=== PATIENT | female | born 1980 | race Caucasian/White ===

== ENCOUNTER 2018-10-09 09:48 | Inpatient (IN) | payer MEDICARE, MEDICAID ==
[~2018-10-09] VITALS: Ht 165.1 cm; Wt 170.4 kg
[2018-10-09] MEDS ORDERED: magnesium hydroxide 30ml (MOM) UD suspension PO PRN (11:20)
[2018-10-09] MEDS ORDERED: loperamide 2mg capsule PO PRN (11:20)
[2018-10-09] MEDS ORDERED: mag hydrox/Alum hydrox/simeth 30ml oral suspension PO PRN (11:20)
[2018-10-09] MEDS ORDERED: hydrOXYzine 25 MG tablet PO PRN (11:20)
[2018-10-09] MEDS ORDERED: tuberculin, purif. prot. deriv. 5 units/0.1ml ID ONE (11:20)
[2018-10-09] MEDS ORDERED: potassium PO (12:07)
[2018-10-09] MEDS ORDERED: BENZ1TAB7 PO (12:07)
[2018-10-09] MEDS ORDERED: HYDR12.5 PO (12:07)
[2018-10-09] MEDS ORDERED: MELO-100 PO (12:07)
[2018-10-09] MEDS ORDERED: HYDR-3686 PO (12:07)
[2018-10-09] MEDS ORDERED: BACL10TA PO (12:07)
[2018-10-09] MEDS ORDERED: ESOM40CA PO (12:07)
[2018-10-09] MEDS ORDERED: POTASSIUM PO (12:07)
[2018-10-09] MEDS ORDERED: HALO5TAB PO (12:07)
[2018-10-09 12:47] VITALS: BP 138/73
--- NOTE | 2018-10-09 13:26 | NUR ---
Admit note: Pt admitted to [facility] today at 1140 for grave disability. Pt admitted for psychosis. Pt admitted involuntarily on 5150. Pt is engaged in belief that her TV at her home was communicating with her and her couch was attempting to cause harm to her daughter. Pt also having difficulty sleeping due to fear that her life is in danger. Pt cooperative with admission process. Pt oriented to the unit. Pt advised of her involuntary hold. Staff has been unable to find pt clothing or scrubs that fit. Pt is wearing the scrubs from the previous facility with draw strings holding the clothing on her.
[2018-10-09] MEDS: hydrOXYzine 25 MG tablet PO SCH ×2 (13:46→20:38)
[2018-10-09] MEDS ORDERED: pantoprazole 40mg Tablet.DR PO SCH (17:00)
[2018-10-09 19:00] VITALS: BP 133/94
[2018-10-09] MEDS: baclofen 10mg tablet PO SCH (20:38)
[2018-10-09] MEDS: benztropine 1mg tablet PO SCH (20:38)
[2018-10-09] MEDS: haloperidol 5mg tablet PO SCH (20:38)
[2018-10-10] MEDS: LORazepam 1 MG tablet PO PRN ×2 (01:37→22:57)
[2018-10-10] MEDS: acetaminophen 325mg tablet PO PRN ×4 (01:37→23:07)
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
[2018-10-10] MEDS: benztropine 1mg tablet PO SCH ×2 (07:36→21:02)
[2018-10-10] MEDS: pantoprazole 40mg Tablet.DR PO SCH ×2 (07:37→18:07)
[2018-10-10] MEDS: haloperidol 5mg tablet PO SCH ×2 (07:38→21:03)
[2018-10-10] MEDS: HYDROchlorothiazide 12.5mg capsule PO SCH (07:38)
[2018-10-10] MEDS: potassium chloride 8mEq ER tablet PO SCH (07:39)
[2018-10-10] MEDS: hydrOXYzine 25 MG tablet PO SCH ×3 (07:39→21:02)
[2018-10-10] MEDS: baclofen 10mg tablet PO SCH ×2 (07:39→21:02)
[2018-10-10 08:00] VITALS: BP 148/81
[2018-10-10] MEDS ORDERED: MELOXICAM 7.5 MG PO SCH (08:00)
[2018-10-10 08:01] LABS: CHOL/HDL RATIO 3.8 (0.00-4.99); CHOLESTEROL 150 MG/DL (0-200); CREATINE KINASE 219 U/L (26-192); HDL CHOLESTEROL 39 MG/DL (35-60); LDL CHOLESTEROL 93 MG/DL (50-100); TRIGLYCERIDES 114 MG/DL (20-135)
[2018-10-10 08:08] LABS: HEMOGLOBIN A1C 5.7 % (4.5-6.2)
--- NOTE | 2018-10-10 16:19 | NUR ---
Nursing Progress Note: Legal hold: 5150 Client on involuntary status for GD/DTS. Report received from BELA Silverio with use of SBAR. Why are they here: Pt admitted on a 5150 for Psychosis. Pt is engaged in belief that her TV at her home was communicating with her and her couch was attempting to cause harm to her daughter. Pt also having difficulty sleeping due to fear that her life is in danger. Staff has been unable to find pt clothing or scrubs that fit. Pt is wearing the scrubs from the previous facility with draw strings holding the clothing on her. Assessment What has happened this shift: Patient required encouragement and prompting to complete ordered labs this morning. Patient c/o room being overly hot temperature lowered. Patient resistant in taking AM medications she insisted this nurse repeat education and description of each pill three times matching them back to the package then fitting them back in the package. Patient smelling her food at breakfast and reading labels. S/I, H/I: Denies A/VH: Denies Sleep: See sleep assessment ADL's: Independent Group attendance: No groups this shift Were Meds taken: Suggest leaving pills in their packages allowing the patient to read the label, feel the pill, see the pill then take it herself out of the package doing this one at a time. Any med S/E None noted Mental Status Exam Appearance: Unkempt Eye contact: Fair Behavior: Paranoid Speech: Talks in a hoarse whisper Mood: Anxious Affect: Labile Thought process: Paranoid Thought Content: She continues to think her father is hiding her children from her as well as manipulating her hospital stay Cognition: A/Ox3 Insight: Poor Judgment: Poor Interventions PRN's used: Therapeutic interventions: 1:1 assessment , medication administration/monitoring/education, encouragement to attend groups, therapeutic conversation & establishment of rapport, symptom identification and management, Q 15 min checks. Restraints/seclusion/emergency medication: None Justification of Continued Inpatient Treatment: Therapeutic support and medication management needed to provide stabilization, and prevent decompensation decreasing risk to patient for readmittance to in-patient unit.
[2018-10-10 19:00] VITALS: BP 173/96
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
[2018-10-11] MEDS: acetaminophen 325mg tablet PO PRN (05:38)
[2018-10-11] MEDS: potassium chloride 8mEq ER tablet PO SCH ×2 (07:35→12:51)
[2018-10-11] MEDS: HYDROchlorothiazide 12.5mg capsule PO SCH (07:36)
[2018-10-11] MEDS: baclofen 10mg tablet PO SCH ×2 (07:37→19:50)
[2018-10-11] MEDS: hydrOXYzine 25 MG tablet PO SCH ×3 (07:38→21:27)
[2018-10-11] MEDS: pantoprazole 40mg Tablet.DR PO SCH ×2 (07:39→17:51)
[2018-10-11] MEDS: LORazepam 1 MG tablet PO PRN ×2 (07:43→19:50)
[2018-10-11] MEDS: haloperidol 5mg tablet PO SCH ×2 (07:45→19:50)
[2018-10-11] MEDS: benztropine 1mg tablet PO SCH ×2 (07:49→19:50)
[2018-10-11 08:00] VITALS: BP 145/96
[2018-10-11 08:25] VITALS: BP 145/96
[2018-10-11] MEDS: furosemide 20MG tablet PO SCH (12:53)
--- NOTE | 2018-10-11 15:48 | NUR ---
Nursing Progress Note: Legal hold: 5150 Client on involuntary status for GD/DTS. Report received from BELA Silverio with use of SBAR. Why are they here: Pt admitted on a 5150 for Psychosis. Pt is engaged in a belief that her TV at her home was communicating with her and her couch was attempting to cause harm to her daughter. Pt also having difficulty sleeping due to fear that her life is in danger. Assessment What has happened this shift: Patient standing in her bedroom doorway peering wide eyed out into the hallway at start of shift. During am med pass pt insisted on holding each packaged pill, reading the label, opening the package herself then taking the pills one at a time. She refused K+, Haldol and benztropine until later in the morning once this nurse had educated, reeducated her multiple times along with encouraging her multiple times to take the medicine as prescribed. She ask this writher multiple times, "when can I go home." S/I, H/I: Denies A/VH: Denies Sleep: See sleep assessment ADL's: Independent Group attendance: Attended both groups Were Meds taken: Suggest leaving pills in their packages allowing the patient to read the label, feel the pill, see the pill then take it herself out of the package doing this one at a time. Any med S/E None noted Mental Status Exam Appearance: Showered last night. She continues to wear hospital gowns as she does not have any clothes from home with her. Eye contact: Fair Behavior: Paranoid Speech: Talks in a hoarse whisper Mood: Anxious Affect: Labile Thought process: Paranoid Thought Content: Wants to know when she can go home. Cognition: A/Ox3 Insight: Poor Judgment: Fair Interventions PRN's used: Ativan Therapeutic interventions: Provided therapeutic communication and active listening, medication administration/monitoring/education, encouragement to attend groups, symptom identification and management, Q 15 min checks. Restraints/seclusion/emergency medication: None Justification of Continued Inpatient Treatment: Therapeutic support and medication management needed to provide stabilization, and prevent decompensation decreasing risk to patient for readmittance to in-patient unit.
[2018-10-11 19:00] VITALS: BP 133/87
[2018-10-11] MEDS: HYDROcodone/acetaminophen 10/325mg tab PO PRN (19:50)
[2018-10-11 20:52] VITALS: BP 133/87
--- NOTE | 2018-10-11 21:04 | NUR ---
Nursing Progress Note: Legal hold: 5150 Client on involuntary status for GD/DTS. Report received from BELA Rodriguez with use of SBAR. Why are they here: Pt admitted on a 5150 for Psychosis. Pt is engaged in a belief that her TV at her home was communicating with her and her couch was attempting to cause harm to her daughter. Pt also having difficulty sleeping due to fear that her life is in danger. Assessment What has happened this shift: Patient in her room at change of shift, she is agitated and paranoid at this time. She refuses vital signs from the techs and is verbal aggressive. A 1:1 assessment is attempted at this time patient expresses "I hate females they are bitches, why do they keep laughing at me, I know they are dirty, I had 2 c-sections why are they trying to harvest my organs from that?" She feels that the female staff on the floor are making fun of her and expresses she thinks they are taking her organ, and states "I know it's probably because the dark skinned one is dating my Dad." then she states "How do I know I can trust you?" This senior copywriter states that I am here to help keep her safe and reiterate that her safety and well being is what is important. Patient is able to be calmed with reassurance, and verbal communication, and validating her feelings. She agrees at this time to have vital signs taken and to take her evening medications. At medication pass patient is tearful stating "I miss my kids, they are my everything." Patient continues to indorse paranoid delusions and signs of depression. She is cooperative for medication pass and then spends time in the recreation room watching television. S/I, H/I: Denies A/VH: Denies Sleep: See sleep assessment ADL's: Independent Group attendance: No groups this shift Were Meds taken: Yes Any med S/E None noted Mental Status Exam Appearance: Clean in hospital gown, patient has no clothes of her own on unit Eye contact: Fair Behavior: Paranoid Speech: Talks in a hoarse whisper Mood: Anxious Affect: Labile Thought process: Paranoid Thought Content: Wants to know when she can go home, thinking staff wants to harvest her organs, and that her Dad has control over hospital staff. Cognition: A/Ox3 Insight: Poor Judgment: Fair Interventions PRN's used: Ativan [place] Therapeutic interventions: Provided therapeutic communication and active listening, medication administration/monitoring/education, encouragement to attend groups, symptom identification and management, Q 15 min checks. Restraints/seclusion/emergency medication: None Justification of Continued Inpatient Treatment: Therapeutic support and medication management needed to provide stabilization, and prevent decompensation decreasing risk to patient for readmittance to in-patient unit.
[2018-10-12 08:00] VITALS: BP 180/76
[2018-10-12] MEDS: pantoprazole 40mg Tablet.DR PO SCH ×3 (09:58→17:05)
[2018-10-12] MEDS: haloperidol 5mg tablet PO SCH ×3 (09:58→20:39)
[2018-10-12] MEDS: HYDROchlorothiazide 12.5mg capsule PO SCH ×2 (09:58→10:35)
[2018-10-12] MEDS: potassium chloride 8mEq ER tablet PO SCH ×2 (09:59→10:35)
[2018-10-12] MEDS: baclofen 10mg tablet PO SCH ×3 (09:59→20:40)
[2018-10-12] MEDS: benztropine 1mg tablet PO SCH ×3 (09:59→20:39)
[2018-10-12] MEDS: hydrOXYzine 25 MG tablet PO SCH ×4 (09:59→17:07)
[2018-10-12] MEDS: furosemide 20MG tablet PO SCH ×2 (09:59→10:34)
[2018-10-12] MEDS: HYDROcodone/acetaminophen 10/325mg tab PO PRN ×2 (12:26→17:06)
[2018-10-12] MEDS: LORazepam 1 MG tablet PO PRN (13:47)
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
[2018-10-12 20:00] VITALS: BP 122/71
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
[2018-10-13] MEDS: HYDROcodone/acetaminophen 10/325mg tab PO PRN ×3 (04:50→18:18)
[2018-10-13] MEDS: potassium chloride 8mEq ER tablet PO SCH (07:30)
[2018-10-13] MEDS: benztropine 1mg tablet PO SCH ×2 (07:31→21:01)
[2018-10-13] MEDS: pantoprazole 40mg Tablet.DR PO SCH ×2 (07:31→17:00)
[2018-10-13] MEDS: haloperidol 5mg tablet PO SCH ×2 (07:31→21:01)
[2018-10-13] MEDS: HYDROchlorothiazide 12.5mg capsule PO SCH (07:31)
[2018-10-13] MEDS: baclofen 10mg tablet PO SCH ×2 (07:31→21:01)
[2018-10-13] MEDS: hydrOXYzine 25 MG tablet PO SCH ×3 (07:31→21:01)
[2018-10-13] MEDS: furosemide 20MG tablet PO SCH (07:32)
[2018-10-13 08:00] VITALS: BP 156/84
--- NOTE | 2018-10-13 15:34 | NUR ---
Nursing Progress Note: Legal hold: 5150 Client on involuntary status for GD/DTS. Report received from Claudia Pleitez RN with use of SBAR. Why are they here: Pt admitted on a 5150 for Psychosis. Pt is engaged in a belief that her TV at her home was communicating with her and her couch was attempting to cause harm to her daughter. Pt also having difficulty sleeping due to fear that her life is in danger. Assessment What has happened this shift: Patient is observed resting in her room at change of shift. She wakes when male tech is doing vital rounds and tells this RN that she feels uncomfortable having male staff take her vitals. When RN is prepared to take patients vitals patient states she had them taken by someone else. Prior to breakfast patient goes into the group room with others. She is observed laughing and conversating in a friendly and happy manner with a female resident. Morning medications are handed to patient and she goes through each one stating what they are. She states that she doesnt want to take the haldol or the atarax because she doesnt know what they are for. RN attempts to provided education, patient does not listen but she does take all of her medications. Patient asks charge nurse for pain medication r/t back pain. RN prepared medication and in route to room was asked by tech to check on patient for pain medication. RN administered pain med as prescribed at which time patient requested water and atarax for anxiety. When RN returned with new water insert patient stated she did not want it. She then asked tech to get her water. Patient was reminded that she refused water that was offered, patient stated she did not want the water from this RN and wanted someone else to get it for her. At scheduled time for Atarax patient refused med from this RN. She later requests more pain medication but it is too early to administer. Charge nurse explained to patient it was too early for pain medication. Patient agreed to take Atarax for anxiety. S/I, H/I: None reported A/VH: None reported Sleep: 3.5hrs NOC ADL's: Independent Group attendance: did not attend AM group, did attend afternoon Were Meds taken: Yes Any med S/E: none reported, no IMs or tremors observed Mental Status Exam Appearance: disheveled, wearing hospital gowns Eye contact: Direct Behavior: uncooperative, argumentive, defensive Speech: Clear Mood: agitated, anxious Affect: congruent to mood Thought process: goal directed regarding wants Thought Content: no delusional thought content expressed to this RN Cognition: A/Ox4 Insight: Poor Judgment: Fair Interventions PRN's used: Lori Therapeutic interventions: Provided therapeutic assessment, maintained safe therapeutic milieu, provided active listening with positive feedback, medication education as needed, monitored for change in behavior and needed intervention. Q 15 min checks. Restraints/seclusion/emergency medication: None Justification of Continued Inpatient Treatment: Continued therapeutic support and medication management needed to provide stabilization, prevent decompensation decreasing risk to patient for readmittance to in-patient unit. Addendum: 10/13/18 at 1654 by Nicolle Carrillo RN Legal hold: [id number]
--- NOTE | 2018-10-13 16:32 | NUR ---
Nurse note: Pt accusing her nurse of taking her medications. Attempting to explain to pt how many times she has received Wilder and pt interupts stating "My nurse stole my meds. She's lying. Call my dr in [place], your violating my rights. I used to pass meds. I know what Im talking about. Shut the door, your all shooting me with lasers and clicking your pens." Closed door for pt without attempting to explain any further instructions.
[2018-10-13 20:00] VITALS: BP 159/93
[2018-10-13] MEDS: ibuprofen tablet 400 MG TABLET PO PRN (21:00)
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
[2018-10-13] MEDS: LORazepam 1 MG tablet PO PRN (23:26)
[2018-10-14] MEDS: HYDROcodone/acetaminophen 10/325mg tab PO PRN ×3 (04:12→19:47)
[2018-10-14] MEDS: potassium chloride 8mEq ER tablet PO SCH (07:30)
[2018-10-14] MEDS: haloperidol 5mg tablet PO SCH ×2 (07:30→19:47)
[2018-10-14] MEDS: pantoprazole 40mg Tablet.DR PO SCH ×2 (07:30→17:26)
[2018-10-14] MEDS: baclofen 10mg tablet PO SCH ×2 (07:31→19:47)
[2018-10-14] MEDS: HYDROchlorothiazide 12.5mg capsule PO SCH (07:31)
[2018-10-14] MEDS: benztropine 1mg tablet PO SCH ×2 (07:31→19:47)
[2018-10-14] MEDS: furosemide 20MG tablet PO SCH (07:32)
[2018-10-14] MEDS: ibuprofen tablet 400 MG TABLET PO PRN ×2 (07:38→16:07)
[2018-10-14] MEDS: hydrOXYzine 25 MG tablet PO SCH ×3 (07:47→19:47)
[2018-10-14 08:04] VITALS: BP 143/74
--- NOTE | 2018-10-14 13:05 | NUR ---
Good appetite, eating 100% of meals, meeting nutrition needs at this time. Will continue to follow. Recommend: 1. continue regular diet 2. weekly weights Addendum: 10/14/18 at [address] Amended: Links added.
--- NOTE | 2018-10-14 17:30 | NUR ---
Nursing Progress Note: Legal hold: 5250 Client on involuntary status for GD/DTS. Report received from BELA Hurd with use of SBAR. Why are they here: Pt admitted on a 5150 for Psychosis. Pt is engaged in a belief that her TV at her home was communicating with her and her couch was attempting to cause harm to her daughter. Pt also having difficulty sleeping due to fear that her life is in danger. Assessment What has happened this shift: Pt. awake at start of shift. took medications and ate breakfast in community room. Pt. refused Atarax this AM because she did not want to be too tired. 1:1 assessment done in community room. Pt. reports she feels like she cannot go to the bathroom because people are talking outside her room. Pt. reports she feels her dad is after her and refuses to speak to him. Pt. had this RN reach out to her father to ask for clothes and update on children. Pt. becomes tearful when talking about her children. Pt. denies SI/HI, A/V H. Pt. requested Lafe this AM for back pain rated 8/10, but pt. recieved it at 0400. Pt. given Motrin instead with good effect. Pt. apologized to staff for her rude behavior yesterday. Pt. Recieved Lafe @12:30. Pt. went to groups. Pt. had court today in which she hoped to get discharged however 5250 was continued, pt. responded wth understanding and said, "I do like this place, and I feel I am much better". Pt. recieved Motrin @ 0400 with good effect. Staff found T-shirt for pt. to wear and pt. appears to be more comfortable now. S/I, H/I: Denies A/VH: Denies Sleep: 3.5 hours of sleep. ADL's: Independent Group attendance: Y Were Meds taken: Y Any med S/E: None noted, None reported Mental Status Exam Appearance: wearing T-shirt with Hospital gown tied around her waiste because there are no 4X pants in the hospital. Eye contact: Direct Behavior: Cooperative, Attended HS snack, Easily agitated Speech: Clear Mood: Depressed Affect: Labile Thought process: more clear and linear, with some distortions regarding her father. Thought Content: father conspiring against her, wanting to speak with her children. Cognition: A/Ox3 Insight: Fair Judgment: Fair Interventions PRN's used: Jon and Lori. Therapeutic interventions: Provided therapeutic communication and active listening, medication administration/monitoring/education, encouragement to attend groups, reality orientation, symptom identification and management, Q 15 min checks. Restraints/seclusion/emergency medication: None Justification of Continued Inpatient Treatment: Pt remains labile and delusional. Therapeutic support and medication management needed to provide stabilization, and prevent decompensation decreasing risk to patient for readmittance to in-patient unit.
[2018-10-14] MEDS: LORazepam 1 MG tablet PO PRN (19:25)
[2018-10-14 20:00] VITALS: BP 150/85
--- NOTE | 2018-10-14 20:30 | NUR ---
Pts father called back after pt hung up on him and requested to speak with her again. I advised against it at the time due to the level of agitation that the phone call had created. The father did inform me that he in fact did tell the patient to "stop flapping her nigger lips" because she would not listen when he was trying to share the status of her kids. I advised him that such language was not appropriate and clearly a trigger for the patient. Father apologized, and shared his frustration of taking care of the patient over the last 23 years and upset with some of the things the patient is saying about him, education done to help father better deal with pts behaviors, he was receptive. He advised me that the patients 9 year old daughter is in temp foster care and is the reason for the patients current breakdown. He states the 9 year old has significant behavior issues, including hoarding and severe acting out, the patient has been trying to manage the daughter but began struggling and stopped taking her meds. The 15 year old son is in another foster home and is doing well. Per father pt lost the kids in 2016 but he helped to get them back.
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
[2018-10-15] MEDS: HYDROcodone/acetaminophen 10/325mg tab PO PRN ×2 (04:43→12:53)
[2018-10-15 07:17] VITALS: BP 140/67
[2018-10-15] MEDS: potassium chloride 8mEq ER tablet PO SCH (07:56)
[2018-10-15] MEDS: furosemide 20MG tablet PO SCH (07:57)
[2018-10-15] MEDS: baclofen 10mg tablet PO SCH ×2 (07:57→20:57)
[2018-10-15] MEDS: benztropine 1mg tablet PO SCH ×2 (07:57→20:58)
[2018-10-15] MEDS: pantoprazole 40mg Tablet.DR PO SCH ×2 (07:57→17:50)
[2018-10-15] MEDS: HYDROchlorothiazide 12.5mg capsule PO SCH (07:58)
[2018-10-15] MEDS: hydrOXYzine 25 MG tablet PO SCH ×3 (08:00→20:58)
[2018-10-15] MEDS: haloperidol 5mg tablet PO SCH ×3 (09:00→20:58)
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
[2018-10-15 20:00] VITALS: BP 159/91
[2018-10-15] MEDS: ibuprofen tablet 400 MG TABLET PO PRN (20:57)
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
[2018-10-16] MEDS: HYDROcodone/acetaminophen 10/325mg tab PO PRN ×4 (00:56→23:58)
[2018-10-16] MEDS: ibuprofen tablet 400 MG TABLET PO PRN ×2 (04:23→12:18)
[2018-10-16] MEDS: acetaminophen 325mg tablet PO PRN ×2 (04:23→16:13)
[2018-10-16] MEDS: LORazepam 1 MG tablet PO PRN ×2 (04:23→16:13)
[2018-10-16] MEDS: benztropine 1mg tablet PO SCH ×2 (07:23→23:58)
[2018-10-16] MEDS: baclofen 10mg tablet PO SCH ×2 (07:23→23:59)
[2018-10-16] MEDS: potassium chloride 8mEq ER tablet PO SCH (07:23)
[2018-10-16] MEDS: pantoprazole 40mg Tablet.DR PO SCH ×2 (07:23→17:25)
[2018-10-16] MEDS: furosemide 20MG tablet PO SCH (07:23)
[2018-10-16] MEDS: HYDROchlorothiazide 12.5mg capsule PO SCH (07:23)
[2018-10-16] MEDS: hydrOXYzine 25 MG tablet PO SCH ×3 (07:23→23:59)
[2018-10-16 07:33] VITALS: BP 152/93
[2018-10-16] MEDS ORDERED: PALIPERIDONE 3 MG TAB.ER.24 PO SCH (08:00)
--- NOTE | 2018-10-16 14:52 | NUR ---
Nursing Progress Note: Nabila Miller Legal hold: 5250 Expires 10/26 Client on involuntary status for being gravely disabled Report received from BELA Hurd with use of SBAR. Why are they here: Pt admitted on a 5150 for Psychosis. Pt is engaged in a belief that her TV at her home was communicating with her and her couch was attempting to cause harm to her daughter. Pt also having difficulty sleeping due to fear that her life is in danger. Assessment What has happened this shift: Pt. is awake at change of shift engaging with staff and patients. She is observed to be smiling and joking with staff. Was compliant with VS and initial physical assessment. Pt stated she was waiting for her father to bring her some clothes. Father was contacted and will bring clothing when he can. During 1:1 pt is cooperative and compliant with all medications, however after opening and telling the patient each medication, she pointed to each one and asked what they were. Pt. Refuses to wear wrist band. She has been observed in her room interacting with someone, laughing, then yelling. During 15 checks, she demonstrates paranoia and delusions that everyone is talking about her, that everyone is a racist and that they are laughing about her not knowing anything about her children. Pt. denies A/V hallucinations, however is responding to internal stimuli. Offered Ativan patient refused stating "I dont want to take pills, thats the reason I lost my kids, I wont take pills. All I need is pot, pot fixes everything." Shortly after this outburst patient was asking for pain meds, lyrica, demerol, fentanyl. Pt. Requested to phone her dad again, provided with phone, did not want to use phone in hallway. Stayed with pt. During conversation. Spoke appropriately with her dad, stated "I just want to get along and do what is best for my kids." Previous to this she shared that her dad was a bad man and she was afraid of him. Also, during the conversation, she discussed how she does not trust her mom and that she is friends with all of her exs and is giving them information on how to find her. S/I, H/I: Denies A/VH: Denies but pt is laughing and talking to herself in her bedroom Sleep: Reported no sleep, refuses any medications that may cause drowsiness ADL's: Independent Group attendance: Afternoon group Were Meds taken: Y Any med S/E: None noted, None reported Mental Status Exam Appearance: Wearing T-shirts with hospital gown tied around her waist because there are not scrubs in pts size in the hospital. Pt. sweating, hair in ponytail. Provided pt. With 3X mens shorts as she is experiencing chaffing from thighs rubbing together. Eye contact: Direct Behavior: Pt. is easily agitated, calling staff names, needing multiple redirection, Pt. is social with other pts, pt spends time in her room talking/laughing/reading/writing to self. She told this consumer loan underwriter that she trusts her, but no one else. Appears to want to split staff. Speech: Clear Mood: Agitated, Anxious Affect: Labile. She will be laughing, with sudden change to yelling and increased agitation. Thought process: Disorganized, pt presents with paranoias and delusions regarding POC in the hospital, staff, father, and mother. Thought Content: Everyone is a racist, everyone is laughing at her. Any person who is talking, is talking about her. Cognition: A/Ox3 (not cognizant of events/purpose) Insight: Very poor Judgment: Very poor Interventions PRN's used: Lori Webb (X2) Therapeutic interventions: Provided therapeutic communication and active listening, medication administration/monitoring/education, encouragement to attend groups, reality orientation, symptom identification and management, Q 15 min checks. Restraints/seclusion/emergency medication: None Justification of Continued Inpatient Treatment: Pt remains labile, agitated, paranoid and delusional. Therapeutic support and medication management needed to provide stabilization, and prevent decompensation decreasing risk to patient for readmittance to in-patient unit. Addendum: 10/16/18 at 1626 by Alicia Alston RN Lyrica ordered for pain, first dose this evening. Pt. is more cooperative, however is still verbalizing seeing people outside her window smoking. C/O significant Chaffing to bilateral inner thighs r/t constant friction, attempted to find suitable clothing but nothing available that will fit.
[2018-10-16 19:00] VITALS: BP 150/81
--- NOTE | 2018-10-16 21:44 | NUR ---
Pt is sleeping soundly with no distress noted, will hold pt's 2100 meds until she wakes up. Pt has slept less than an 1 over the last 24 hours.
[2018-10-16] MEDS: pregabalin 75mg capsule PO SCH (23:59)
[2018-10-17] MEDS: ibuprofen tablet 400 MG TABLET PO PRN ×2 (02:09→11:46)
--- NOTE | 2018-10-17 03:28 | NUR ---
Nursing Progress Note: Legal hold: 5250 Exp 10/26 @ 1140 Client on involuntary status for being gravely disabled Report received from BELA Galicia with use of SBAR. Why are they here: Pt admitted on a 5150 for Psychosis. Pt is engaged in a belief that her TV at her home was communicating with her and her couch was attempting to cause harm to her daughter. Pt also having difficulty sleeping due to fear that her life is in danger. Assessment What has happened this shift: Pt. sitting in room at shift change, no acute distress noted. 1:1 assessment was completed at bedside. Pt was agitated, but cooperative. Pt later came up to this publicity writer and asked if she had any phone calls. Pt voiced her concern that some staff are not giving her her messages or are changing the people on her list that she wants to talk to. Reassured pt this was not happening. Pt observed in TV room laughing and talking to peers about how "he (not mentioning a name) is going to be pissed if he sees him." Pt was asleep in room when 2100 meds were being passed. Since pt had had little sleep in the last 24 hrs this publicity writer let pt sleep. Pt was administered her medications at 2330. Pt was pleasant when she awoke. She talked about how she missed her children and perseverated on how her father was turning them against her. Pt states her children are two different races and her dad is a racist and doesn't see them as that. Pt feels her father bad mouths her and says she is "crazy and paranoid." Pt has been awake since 2330. She was walking the halls. Pt refers to staff as "bitches" and states "they shouldn't treat me like shit, they just want my ", "I am going to tell my father and they will get fired." RN redirected conversation as pt was getting more agitated. At one point pt postured up on a female staff person, then flipped her off "she better stay away from my ." Pt states there was a camoflauge jacket in the TV earlier and states "my friend put it there to let me know he was okay" (pt refers to a friend who is in the [employer]). Pt is observed sitting in her room talking to herself and intermittently reading her Bible. Pt refuses Ativan "I don't want to sleep, I don't want to miss my morning medications." RN reassured pt she wouldn't miss medications - pt still declined. Pt has been in and out of her room, expained to patient she can't be up and down the halls talking loud and having her headphones turned on, othe pts' are sleeping. Pt response "let's let all the vampires out." S/I, H/I: Pt denies. None observed A/VH: Pt denies but pt is laughing and talking to herself in her bedroom Sleep: See sleep assessment notation. Pt resisting need to sleep ADL's: Independent Group attendance: filing writer, no group Were Meds taken: Medication compliant - refuses PRN Any med S/E: None noted, None reported Mental Status Exam Appearance: Wearing T-shirts with hospital gown tied around her waist because there are not scrubs in pts size in the hospital. Pt. sweating, hair in ponytail Eye contact: Direct Behavior: Pt. was cooperative at beginning of shift, then became very agitated and paranoid Speech: Clear, hyperverbal Mood: Agitated, paranoid, restless, anxious Affect: Labile Thought process: Disorganized, tangential, perseveration (female staff want her husband0 Thought Content: Delusional, father turning her kids against her. Father is a racist. Female staff "wants my " Cognition: A/Ox3 (not cognizant of events/purpose) Insight: Very poor Judgment: Very poor Interventions PRN's used: Jon Sandoval Therapeutic interventions: Provided therapeutic communication and active listening, medication administration/monitoring/education, encouragement to attend groups, reality orientation, symptom identification and management, Q 15 min checks. Restraints/seclusion/emergency medication: None Justification of Continued Inpatient Treatment: Pt remains labile, agitated, paranoid and delusional. Therapeutic support and medication management needed to provide stabilization, and prevent decompensation decreasing risk to patient for readmittance to in-patient unit. Addendum: 10/17/18 at 0503 by Uyen Alcantara RN Pt continued to escalate. Client was overheard saying "I will beat this staff up" "those slut, bitch, whores, they are trying to steal my !" Client continued to make loud verbal threats to staff and waking patients up. RN along with other staff attempted to redirect pt. Pt refused her PRN Ativan. CRN received verbal order from JOEY Alexandre for 2 mg po Ativan and 10 mg po Haldol. Security was notified to be present on the unit. Once security arrived on unit, this RN and CRN attempted verbal deescalation, then offered client oral PRN medications. Then offered pt a snack. Client continued to make bizarre statements "Is this going to slash me?" "Are you trying to kill me?" "What about the BTK?" "Are you in this with my dad?" Client requested headphones and is continuing to walk art. Will continue to monitor
[2018-10-17] MEDS ORDERED: haloperidol 5mg tablet PO ONE ×2 (04:25→19:00)
[2018-10-17] MEDS ORDERED: LORazepam 1 MG tablet PO ONE ×2 (04:25→19:10)
[2018-10-17] MEDS ORDERED: haloperidol lactate 5mg/ml inj IM ONE ×2 (04:30→19:00)
[2018-10-17] MEDS ORDERED: LORazepam 2 mg/ml vial IM ONE ×2 (04:30→19:00)
[2018-10-17] MEDS ORDERED: haloperidol lactate 5mg/ml inj ONE (04:32)
[2018-10-17] MEDS ORDERED: LORazepam 2 mg/ml vial ONE (04:33)
[2018-10-17 08:00] VITALS: BP 107/66
[2018-10-17] MEDS: PALIPERIDONE 3 MG TAB.ER.24 PO SCH ×2 (08:00→08:22)
[2018-10-17] MEDS: pregabalin 75mg capsule PO SCH ×3 (08:21→20:16)
[2018-10-17] MEDS: hydrOXYzine 25 MG tablet PO SCH ×3 (08:22→20:16)
[2018-10-17] MEDS: potassium chloride 8mEq ER tablet PO SCH (08:22)
[2018-10-17] MEDS: baclofen 10mg tablet PO SCH ×2 (08:22→20:16)
[2018-10-17] MEDS: pantoprazole 40mg Tablet.DR PO SCH ×2 (08:22→17:38)
[2018-10-17] MEDS: benztropine 1mg tablet PO SCH ×2 (08:23→20:16)
[2018-10-17] MEDS: furosemide 20MG tablet PO SCH (08:23)
[2018-10-17] MEDS: HYDROchlorothiazide 12.5mg capsule PO SCH (08:23)
[2018-10-17] MEDS: HYDROcodone/acetaminophen 10/325mg tab PO PRN ×2 (08:43→13:07)
--- NOTE | 2018-10-17 13:59 | NUR ---
Nursing Progress Note: Nabila Miller Legal hold: 5250 Expires 10/26 Client on involuntary status for being gravely disabled Report received from BELA Hurd with use of SBAR. Why are they here: Pt admitted on a 5150 for Psychosis. Pt is engaged in a belief that her TV at her home was communicating with her and her couch was attempting to cause harm to her daughter. Pt also having difficulty sleeping due to fear that her life is in danger. Assessment What has happened this shift: Patient is asleep at change of shift and up before breakfast. Patient is agitated and accusing staff of being racist because "my is black". Patient cussing angry at all the staff she has encountered today. Patient refused to take her Paliperidone this morning. Patient stated "I committed a crime! I called you a bitch. Can you please take me to the [facility]. RN explained to the patient that she was on a legal hold and we have no jurisdiction to arrest her. Patient stated in one of her rants that her is at [facility]. RN does not believe patient is or in a current relationship. Was compliant with VS and initial physical assessment. Patient Refuses to wear her wrist band. She has been observed in her room talking to herself. During 15 checks, she demonstrates paranoia and delusions that everyone is talking about her. Patient says "how would you feel if someone took your kids away." Pt. denies A/V hallucinations, however is responding to internal stimuli. S/I, H/I: Denies A/VH: Denies but patient is talking to herself in her room Sleep: Patient took several cat naps today. ADL's: Independent Group attendance: Afternoon group Were Meds taken: Yes, except refused paliperidone. Any med S/E: None noted, None reported Mental Status Exam Appearance: Wearing T-shirts with hospital gown tied around her waist because there are not scrubs in pts size in the hospital. Pt. sweating, hair in ponytail. Provided pt. With 3X mens shorts as she is experiencing chaffing from thighs rubbing together. Eye contact: Direct Behavior: Pt. is easily agitated, calling staff names, needing multiple redirection, Pt. is social with other pts, pt spends time in her room talking/laughing/reading/writing to self. Patient called this senior medical writer a racist bitch and spit out her ibuprofen on the floor at RN's feet when a tech walked by her room and patient stated he gave her a dirty look. Speech: Clear Mood: Agitated, Anxious Affect: Labile. She will be laughing, with sudden change to yelling and increased agitation. Thought process: Disorganized, pt presents with paranoias and delusions regarding POC in the hospital, staff, father, and mother. Thought Content: Everyone is a racist, everyone is laughing at her. Any person who is talking, is talking about her. Cognition: A/Ox3 (not cognizant of events/purpose) Insight: Very poor Judgment: Very poor Interventions PRN's used: Lori (X2) Therapeutic interventions: Provided therapeutic communication and active listening, medication administration/monitoring/education, encouragement to attend groups, reality orientation, symptom identification and management, Q 15 min checks. Restraints/seclusion/emergency medication: None Justification of Continued Inpatient Treatment: Pt remains labile, agitated, paranoid and delusional. Therapeutic support and medication management needed to provide stabilization, and prevent decompensation decreasing risk to patient for readmittance to in-patient unit. Addendum: 10/16/18 at 1626 by Alicia Alston RN Lyrica ordered for pain, first dose this evening. Pt. is more cooperative, however is still verbalizing seeing people outside her window smoking. C/O significant Chaffing to bilateral inner thighs r/t constant friction, attempted to find suitable clothing but nothing available that will fit.
[2018-10-17] MEDS ORDERED: paliperidone palmitate inj 234 MG/1.5 ML SYRINGE IM ONE (15:00)
[2018-10-17] MEDS ORDERED: LORazepam 2 mg/ml vial IV ONE (19:00)
[2018-10-17] MEDS ORDERED: diphenhydrAMINE 50 mg/ml inj IM ONE (19:00)
[2018-10-17] MEDS ORDERED: diphenhydrAMINE 25mg capsule PO ONE (19:00)
--- NOTE | 2018-10-17 19:00 | NUR ---
Pt refused vitals
--- NOTE | 2018-10-17 22:33 | NUR ---
Pt refused assessment Addendum: 10/17/18 at 2242 by Uyen Alcantara RN Amended: Links added.
--- NOTE | 2018-10-17 22:38 | NUR ---
Pt refused vitals and assessment Addendum: 10/17/18 at 2242 by Uyen Alcantara RN Amended: Links added.
--- NOTE | 2018-10-18 05:13 | NUR ---
Client behaviors: During COS the client was in the atr yelling accusations that included; theft of clothing and "sleeping with my ". The client was pointing angrily and shouting obscenities. Clients reacted by returning to their rooms. Two female clients reported to staff that they are afraid of this client and do not come out of their room when this client is on the unit. A male client stated, "I'm over her." Another male client attempted to exit the rec room but was too afraid to leave while client was present (this client backed against the window). Another male client became angry and went to his room. Attempts to verbally de-escalate client were unsuccessful. Client was escorted to her room by staff. JOEY Almanzar was notified at 19:15 and ordered the followin. Temporary LOS. 2. Set appropriate boundaries. 3. Give 2 mg Ativan Tab PO, 10 mg Haldol Tab PO, and 50 mg Benadryl Tab PO. If client refuses PO meds give via IM. Security was notified to standby on unit. This RN and Uyen Pedraza RN entered clients room and offered PO meds. Initially client was angry and accusatory, but relented and accepted PO meds. Jimi Martínez stayed with the client until she feel asleep.
--- NOTE | 2018-10-18 05:55 | NUR ---
Nursing Progress Note: Legal hold: 5250 Exp 10/26 @ 1140 Client on involuntary status for being gravely disabled Report received from BELA Galicia with use of SBAR. Why are they here: Pt admitted on a 5150 for Psychosis. Pt is engaged in a belief that her TV at her home was communicating with her and her couch was attempting to cause harm to her daughter. Pt also having difficulty sleeping due to fear that her life is in danger. Assessment What has happened this shift: During COS the client was in the art yelling accusations that included; theft of clothing and "sleeping with my ". The client was pointing angrily and shouting obscenities. Clients reacted by returning to their rooms. Two female clients reported to staff that they are afraid of this client and do not come out of their room when this client is on the unit. A male client stated, "I'm over her." Another male client attempted to exit the rec room but was too afraid to leave while client was present (this client backed against the window). Another male client became angry and went to his room. Attempts to verbally de-escalate client were unsuccessful. Client was escorted to her room by staff. JOEY Almanzar was notified at 19:15 and ordered the followin. Temporary LOS. 2. Set appropriate boundaries. 3. Give 2 mg Ativan Tab PO, 10 mg Haldol Tab PO, and 50 mg Benadryl Tab PO. If client refuses PO meds give via IM. Security was notified to standby on unit. This RN and MICHAEL Caceres entered clients room and offered PO meds. Initially client was angry and accusatory, but relented and accepted PO meds. Jimi Martínez stayed with the client until she feel asleep. Pt was monitored throughout the shift for medication side effects. S/I, H/I: Pt denies. None observed A/VH: Pt denies but pt is laughing and talking to herself in her bedroom Sleep: Currently sleeping - B-52 administered ADL's: Independent Group attendance: day camp unit leader, no group Were Meds taken: Medication compliant with routine meds. PO B-52 administered with effect Any med S/E: None noted, None reported Mental Status Exam Appearance: Wearing T-shirts with hospital gown tied around her waist because there are not scrubs in pts size in the hospital. Pt. sweating, hair in ponytail. Provided pt. With 3X mens shorts as she is experiencing chaffing from thighs rubbing together. Eye contact: Direct Behavior: Extremely paranoid, agitated, pt thinks one of her peers stole a pair of pants her dad left. Pt's. dad was never here today. Calling staff and peers bitches and whores. Speech: Clear, hyperverbal Mood: Agitated, paranoid, anxious Affect: Labile, pt will be laughing with sudden change to yelling and increased agitation Thought process: Disorganized, tangential, perseveration Thought Content: Someone stole her clothes, she needs her kids back, everyone is talking about her Cognition: A/Ox3 (not cognizant of events/purpose) Insight: Very poor Judgment: Very poor Interventions PRN's used: One time PRN - Ativan, Benadryl, Haldol Therapeutic interventions: Provided therapeutic communication and active listening, medication administration/monitoring/education, encouragement to attend groups, reality orientation, symptom identification and management, Q 15 min checks. Restraints/seclusion/emergency medication: None Justification of Continued Inpatient Treatment: Pt remains labile, agitated, paranoid and delusional. Therapeutic support and medication management needed to provide stabilization, and prevent decompensation decreasing risk to patient for readmittance to in-patient unit.
[2018-10-18 07:00] VITALS: BP 156/92
[2018-10-18] MEDS: pregabalin 75mg capsule PO SCH ×3 (07:34→20:23)
[2018-10-18] MEDS: hydrOXYzine 25 MG tablet PO SCH ×3 (07:34→20:22)
[2018-10-18] MEDS: PALIPERIDONE 3 MG TAB.ER.24 PO SCH (07:35)
[2018-10-18] MEDS: HYDROcodone/acetaminophen 10/325mg tab PO PRN ×4 (07:35→21:40)
[2018-10-18] MEDS: benztropine 1mg tablet PO SCH ×2 (07:35→20:23)
[2018-10-18] MEDS: HYDROchlorothiazide 12.5mg capsule PO SCH (07:35)
[2018-10-18] MEDS: LORazepam 1 MG tablet PO PRN ×2 (07:35→21:39)
[2018-10-18] MEDS: pantoprazole 40mg Tablet.DR PO SCH ×2 (07:35→17:35)
[2018-10-18] MEDS: furosemide 20MG tablet PO SCH (07:36)
[2018-10-18] MEDS: baclofen 10mg tablet PO SCH ×2 (07:36→20:23)
[2018-10-18] MEDS: potassium chloride 8mEq ER tablet PO SCH (07:36)
[2018-10-18] MEDS: ibuprofen tablet 400 MG TABLET PO PRN ×2 (11:29→20:23)
--- NOTE | 2018-10-18 13:43 | NUR ---
Nursing Progress Note: Legal hold: 5250 Exp 10/26 @ 1140 Client on involuntary status for being gravely disabled Report received from Claudia Pleitez RN with use of SBAR. Why are they here: Pt admitted on a 5150 for Psychosis. Pt is engaged in a belief that her TV at her home was communicating with her and her couch was attempting to cause harm to her daughter. Pt also having difficulty sleeping due to fear that her life is in danger. Assessment What has happened this shift: Patient awoke shortly after change of shift. Went into group room and started escalating, yelling, cussing, threatening behavior. Other clients in room either froze or went to their rooms. Patient unwilling to take medications in group room, but agreed to go back to her room and take them. On the way back in hallway, patient cussing. "I'm to a loom repairer". Once in patient's room, she questioned every medication, and started picking at medications asking what each one was. Showed her packaging for each medication. She didn't believe that I gave her [place], because it wasn't in a "gold package". Showed her clearly where it stated it was [place] 10-325. This process took over 30", and patient agreed to take all of them. Notified JOEY Lin of behaviors and requested prns, new orders: Ativan 2 mg p.o. q6h, prn, Geodon 20 mg p.o. b.i.d., prn, Benadryl 50 mg p.o. q6h prn for severe agitation. Team meeting to discuss plan of care which includes limit setting, show of force, if patient does not take p.o. B-52 for agitation, then I.M. meds, restraints if necessary. Patient refusing to take Haldol, so was changed to Geodon. Patient was escorted back to her room where she used headphones, looked at paperwork, made phone calls, and was observed talking to herself. Patient is paranoid that her information will be shared with others, that staff are talking about her. Called RN choice words. Patient requesting to go to [facility]. Kept telling nurse that she is going to call her father and apologize to him and tell him to come pick her up. Reminded patient that she is on an involuntary hold, "yeah, I'm in a hole all right", "on a leash". Patient did respond well to strong limit setting with consequences. Security called and they spent time in group room monitoring behaviors for increased escalation. Patient in rec room now watching t.v. and laughing out loud with another male client. Will continue to monitor patient behaviors and intervene as necessary to make other patient's feel safe in unit milieu. S/I, H/I: Pt. observed talking to herself. Denies all. A/VH: Pt denies but pt is laughing and talking to herself in her bedroom Sleep: 8.25 hrs at [facility]. ADL's: Independent Group attendance: Attempted, pt cannot maintain control in group. Were Meds taken: Yes with much coaxing/education. Patient states pain is 12/10 low back pain. Pt. was given [place] 10-325, routine Lyrica, Motrin, ice packs for pain. Any med S/E: None observed, None reported Mental Status Exam Appearance: Short, obese woman wearing two hospital gowns to cover self. Reportedly, patient's father is supposed to bring in some clothing. Eye contact: Direct Behavior: Yelling, cussing, scaring other patients. Accusatory Speech: Increased volume and rate. Mood: Labile. Affect: Labile, pt will be laughing with sudden change to yelling and increased agitation Thought process: Disorganized, tangential, perseveration Thought Content: Wants to know where her children are, when her next pain meds are due, Cognition: A/Ox3 (not cognizant of events/purpose) Insight: Impaired. Judgment: Impaired. Interventions PRN's used: Ativan 1 mg, [place], Motrin Therapeutic interventions: Strong limit setting, show of force, consequences of behavior. No tolerance rule on unit to keep other patients safe. Provided therapeutic communication and active listening, medication administration/monitoring/education, reality orientation, symptom identification and management, Q 15 min checks. Charge Nurse kept informed of patients behavior and needed interventions. Restraints/seclusion/emergency medication: None Justification of Continued Inpatient Treatment: Pt remains labile, agitated, paranoid and psychotic. Interruption of current crisis, therapeutic support and medication management needed to provide stabilization, and prevent decompensation decreasing risk to patient and other patients on unit.
[2018-10-18] MEDS ORDERED: HYDROchlorothiazide 12.5mg capsule PO ONE (19:30)
[2018-10-18 19:50] VITALS: BP 144/106
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
[2018-10-18] MEDS: acetaminophen 325mg tablet PO PRN (23:43)
[2018-10-18] MEDS: diphenhydrAMINE 25mg capsule PO PRN (23:44)
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
--- NOTE | 2018-10-19 04:45 | NUR ---
Pt became agitated and persecutory towards staff after her father dropped belongings off for her. She was walked to her room by staff members and was encouraged to try to rest. Pt accused staff members of being "disrespectful" and "mean" and said she was going to anabel them. Pt was calmed down by staff members, given medications, and soon fell asleep.
[2018-10-19] MEDS: benztropine 1mg tablet PO SCH ×2 (07:30→20:28)
[2018-10-19] MEDS: HYDROchlorothiazide 12.5mg capsule PO SCH (07:30)
[2018-10-19] MEDS: furosemide 20MG tablet PO SCH (07:30)
[2018-10-19] MEDS: potassium chloride 8mEq ER tablet PO SCH (07:30)
[2018-10-19] MEDS: hydrOXYzine 25 MG tablet PO SCH ×3 (07:30→20:28)
[2018-10-19] MEDS: pantoprazole 40mg Tablet.DR PO SCH ×2 (07:30→17:15)
[2018-10-19] MEDS: pregabalin 75mg capsule PO SCH ×3 (07:31→20:28)
[2018-10-19] MEDS: PALIPERIDONE 3 MG TAB.ER.24 PO SCH (07:31)
[2018-10-19] MEDS: baclofen 10mg tablet PO SCH ×2 (07:31→20:28)
[2018-10-19 08:00] VITALS: BP 119/74
[2018-10-19] MEDS: HYDROcodone/acetaminophen 10/325mg tab PO PRN ×3 (08:46→21:41)
[2018-10-19] MEDS: LORazepam 1 MG tablet PO PRN (12:40)
[2018-10-19] MEDS: acetaminophen 325mg tablet PO PRN (14:44)
[2018-10-19] MEDS: topiramate 25mg tablet PO SCH (17:15)
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
[2018-10-19] MEDS: ibuprofen tablet 400 MG TABLET PO PRN (19:19)
[2018-10-19 19:55] VITALS: BP 113/74
[2018-10-20] MEDS: diphenhydrAMINE 25mg capsule PO PRN (00:47)
[2018-10-20] MEDS: acetaminophen 325mg tablet PO PRN ×2 (00:47→11:55)
[2018-10-20] MEDS: ibuprofen tablet 400 MG TABLET PO PRN ×3 (02:54→19:27)
[2018-10-20] MEDS: LORazepam 1 MG tablet PO PRN ×2 (02:54→21:16)
[2018-10-20] MEDS: ziprasidone 20mg capsule PO PRN ×2 (05:16→21:17)
[2018-10-20] MEDS: HYDROcodone/acetaminophen 10/325mg tab PO PRN ×3 (05:21→21:09)
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
[2018-10-20] MEDS: furosemide 20MG tablet PO SCH (07:48)
[2018-10-20] MEDS: potassium chloride 8mEq ER tablet PO SCH (07:48)
[2018-10-20] MEDS: pregabalin 75mg capsule PO SCH ×3 (07:48→21:07)
[2018-10-20] MEDS: pantoprazole 40mg Tablet.DR PO SCH ×2 (07:49→17:00)
[2018-10-20] MEDS: HYDROchlorothiazide 12.5mg capsule PO SCH (07:51)
[2018-10-20] MEDS: topiramate 25mg tablet PO SCH ×4 (07:51→17:01)
[2018-10-20] MEDS: hydrOXYzine 25 MG tablet PO SCH ×3 (07:52→21:07)
[2018-10-20] MEDS: baclofen 10mg tablet PO SCH ×2 (07:52→20:00)
[2018-10-20] MEDS: PALIPERIDONE 3 MG TAB.ER.24 PO SCH (07:54)
[2018-10-20] MEDS: benztropine 1mg tablet PO SCH ×2 (07:54→20:00)
[2018-10-20 08:00] VITALS: BP 140/86
--- NOTE | 2018-10-20 12:06 | NUR ---
1:1 COLLATERAL/DISCHARGE PLANNING SW received message from CPS T[employer], Rosemary Aiken at [phone], regarding pt's children in the foster care system. She reports pt is scheduled to attend a long term hearing on 10/23/2018 and requested return contact. SW checked ZACH to learn if pt had allowed for information to be shared and learned it had not been signed for CPS. SW requested pt to provide signature to allow communication and pt declined. SW provided pt w/ CPS worker telephone number and court hearing date. JERILYN ValenzuelaW
--- NOTE | 2018-10-20 17:29 | NUR ---
Nursing Progress Note: Legal hold: 5250 Exp 10/26 @ 1140 Client on involuntary status for being gravely disabled Report received from BELA Mason with use of SBAR. Why are they here: Pt admitted on a 5150 for Psychosis. Pt is engaged in a belief that her TV at her home was communicating with her and her couch was attempting to cause harm to her daughter. Pt also having difficulty sleeping due to fear that her life is in danger. Assessment What has happened this shift: Pt was awake at change of shift and did not sleep at all last night. Patient had a cussing breakdown at change of shift but was advised to go to her room and patient calmed down. She is fixated on female members of the staff talking about her. She was labile and easily agitated. Lower back pain treated with Tylenol, Motrin and [place]. Pt took very short cat nap this afternoon. Patient didn't remember her 0520 [place] and was upset with the nurse that a [place] wasn't included in the 0800 medications. Patient accused one of the female staff taking her [place] this morning. When RN gave her a [place] close to 1400 patient didn't believe it was a real [place] and wants us to give her her medication that is stored in the pharmacy. When RN gave patient her 1700 meds patient wanted to know why we didn't give patient her Lyrica in the afternoon. RN and patient walked together and RN showed patient on the computer the 2 times she received her Lyrica today. Patient is labile and easily agitated. Patient states she is doing fine and doesn't need medication. Patient refused her afternoon Topamax. S/I, H/I: Denies A/VH: Denies Sleep: Very short cat nap in the afternoon. ADL's: Independent Group attendance: No Were Meds taken: Yes, refused 1 dose of afternoon Topamax Any med S/E: None observed, None reported Mental Status Exam Appearance: Long shirt with leggings but took off the leggings after lunch. Eye contact: Direct Behavior: Agitated, labile, Speech: pressured Mood: Labile. Affect: Labile Thought process: Disorganized thoughts, paranoia Thought Content: Wants pain medications Cognition: A/Ox3 (not cognizant of events/purpose) Insight: Poor Judgment: Poor Interventions PRN's used: Ativan, [place], Tylenol, Motrin Therapeutic interventions: Limit setting, No tolerance rule on unit to keep other patients safe. Provided therapeutic communication and active listening, medication administration/monitoring/education, reality orientation, symptom identification and management, Q 15 min checks. Charge Nurse kept informed of patients behavior and needed interventions. Restraints/seclusion/emergency medication: None Justification of Continued Inpatient Treatment: Pt remains labile, agitated, paranoid and psychotic. Interruption of current crisis, therapeutic support and medication management needed to provide stabilization, and prevent decompensation decreasing risk to patient and other patients on unit.
[2018-10-20 20:28] VITALS: BP 118/73
[2018-10-20] MEDS ORDERED: quetiapine 100mg tablet PO ONE (22:50)
--- NOTE | 2018-10-21 02:53 | NUR ---
Legal hold: 5250 Exp 10/26 @ 1140 Client on involuntary status for being gravely disabled Report received from BELA Howard with use of SBAR. Why are they here: Pt admitted on a 5150 for Psychosis. Pt is engaged in a belief that her TV at her home was communicating with her and her couch was attempting to cause harm to her daughter. Pt also having difficulty sleeping due to fear that her life is in danger. Assessment What has happened this shift: Pt had periods of agitation and verbally abusive towards peers during snack. Pt conversation are tangental and contain references to her father Pt paced the halls on and off the phone. Pt is impatient when asking for something and was calling a RN by dog names to get her attention. Pt was compliant with medications and Prn's. Pt stated that she has had difficulty sleeping and the provider gave a one time order for Seroquil 100mg for sleep @ 23:00 and was asleep at 23:30. S/I, H/I: Denies A/VH: Denies Sleep: pt currently sleeping ADL's: Independent Group attendance: N/A Were Meds taken: Yes Any med S/E: None observed, None reported Mental Status Exam Appearance: Took a shower dressed appropriately in street clothes. Eye contact: Direct Behavior: Agitated, labile Speech: pressured Mood: Labile. Affect: Labile Thought process: Disorganized thoughts, paranoia Thought Content: Wants pain medications Cognition: A/Ox3 (not cognizant of events/purpose) Insight: Poor Judgment: Poor Interventions PRN's used: Ativan, Atarax, [place], Therapeutic interventions: Limit setting, No tolerance rule on unit to keep other patients safe. Provided therapeutic communication and active listening, medication administration/monitoring/education, reality orientation, symptom identification and management, Q 15 min checks. Charge Nurse kept informed of patients behavior and needed interventions. Restraints/seclusion/emergency medication: None Justification of Continued Inpatient Treatment: Pt remains labile, agitated, paranoid and psychotic. Interruption of current crisis, therapeutic support and medication management needed to provide stabilization, and prevent decompensation decreasing risk to patient and other patients on unit.
[2018-10-21] MEDS: PALIPERIDONE 3 MG TAB.ER.24 PO SCH (07:30)
[2018-10-21] MEDS: pregabalin 75mg capsule PO SCH ×3 (07:30→20:12)
[2018-10-21] MEDS: pantoprazole 40mg Tablet.DR PO SCH ×2 (07:30→18:05)
[2018-10-21] MEDS: baclofen 10mg tablet PO SCH ×2 (07:31→20:13)
[2018-10-21] MEDS: potassium chloride 8mEq ER tablet PO SCH (07:31)
[2018-10-21] MEDS: topiramate 25mg tablet PO SCH ×3 (07:31→18:05)
[2018-10-21] MEDS: HYDROcodone/acetaminophen 10/325mg tab PO PRN ×3 (07:32→20:19)
[2018-10-21] MEDS: HYDROchlorothiazide 12.5mg capsule PO SCH (07:33)
[2018-10-21] MEDS: furosemide 20MG tablet PO SCH (07:33)
[2018-10-21] MEDS: hydrOXYzine 25 MG tablet PO SCH ×3 (07:33→20:14)
[2018-10-21] MEDS: benztropine 1mg tablet PO SCH ×2 (07:33→20:12)
[2018-10-21 07:41] VITALS: BP 138/88
--- NOTE | 2018-10-21 11:12 | NUR ---
Reassessment: Pt continues with 75-100% PO intake on regular diet meeting nutrient needs. Patient's wt is up 5 kg since admit, likely r/t good PO intake as well as fluid retention documented with edema. [facility] 10/20. Will continue to follow. Recommend: 1. continue regular diet 2. weekly weights Addendum: 10/21/18 at [address] Amended: Links added.
[2018-10-21] MEDS: ibuprofen tablet 400 MG TABLET PO PRN ×2 (12:38→22:32)
[2018-10-21] MEDS: ziprasidone 20mg capsule PO PRN (13:47)
--- NOTE | 2018-10-21 17:35 | NUR ---
Nursing Progress Note: Legal hold: 5250 Exp 10/26 @ 1140 Client on involuntary status for being gravely disabled Report received from BELA Hurd with use of SBAR Why are they here: Pt admitted on a 5150 for Psychosis. Pt is engaged in a belief that her TV at her home was communicating with her and her couch was attempting to cause harm to her daughter. Pt also having difficulty sleeping due to fear that her life is in danger. Assessment What has happened this shift: Pt. in a pleasant mood this AM, took medications after examining each, ate breakfast. Pt. making delusional comments about how numbers represent her father. 1:1 done at bedside, pt. talks at length of how her father is after her and trying to take her kids away. Pt. talks about how her father her mother to pursue multiple women and how she felt abandoned by her father and her mother. Pt. reports her biological mother is a drug addict. Pt. reports her father hates her for having children with men of different races. Pt. became agitated after requesting to have phone numbers from her phone and was told that she could not look at facebook. Pt. keeps her door closed because she feels like people are constantly looking at her. Pt. states, "people taking my medications, selling my identity, wtiches, and wejessica suazo, working with my father to keep me here and sell my kids to [employer] men for $100,000. Pt. perseverates on her children. S/I, H/I: Denies A/VH: Denies Sleep: 5.5 hours of sleep. ADL's: Independent. pt. showered. Group attendance: Pt. attended morning group but not evening group. Were Meds taken: Yes Any med S/E: None observed, None reported Mental Status Exam Appearance: clean and neat. Eye contact: Direct Behavior: Pleasent and cooperative in the morning, but became agitated, labile, and paranoid in the afternoon. Speech: pressured Mood: Labile. Affect: Labile Thought process: Disorganized thoughts, paranoia Thought Content: Focused on her children. Cognition: A/Ox3 (not cognizant of events/purpose) Insight: Poor Judgment: Poor Interventions PRN's used: Lori Sargent Motrin Therapeutic interventions: Limit setting, No tolerance rule on unit to keep other patients safe. Provided therapeutic communication and active listening, medication administration/monitoring/education, reality orientation, symptom identification and management, Q 15 min checks. Charge Nurse kept informed of patients behavior and needed interventions. Restraints/seclusion/emergency medication: None Justification of Continued Inpatient Treatment: Pt remains labile, agitated, paranoid and psychotic. Interruption of current crisis, therapeutic support and medication management needed to provide stabilization, and prevent decompensation decreasing risk to patient and other patients on unit.
[2018-10-21] MEDS ORDERED: quetiapine 100mg tablet PO PRN (19:20)
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
[2018-10-22] MEDS: acetaminophen 325mg tablet PO PRN (00:20)
[2018-10-22] MEDS: LORazepam 1 MG tablet PO PRN ×2 (00:20→11:18)
--- NOTE | 2018-10-22 03:38 | NUR ---
Nursing Progress Note: Legal hold: 5250 Exp 10/26 @ 1140 Client on involuntary status for being gravely disabled Report received from BELA Hurd with use of SBAR Why are they here: Pt admitted on a 5150 for Psychosis. Pt is engaged in a belief that her TV at her home was communicating with her and her couch was attempting to cause harm to her daughter. Pt also having difficulty sleeping due to fear that her life is in danger. Assessment What has happened this shift: Pt exhibited a little more control of behavior. Became agitated and angry at another pt in group room but did not escalate into aggressive speech or behavior. Pt is still delusional (See prior note by Charge nurse) S/I, H/I: Denies A/VH: Denies Sleep: No sleep. ADL's: Independent. pt. showered. Group attendance: Pt. attended morning group but not evening group. Were Meds taken: Yes Any med S/E: None observed, None reported Mental Status Exam Appearance: clean and neat. Eye contact: Direct Behavior:Cooperative most of the time Speech: pressured Mood: Labile. Affect: Labile Thought process: Disorganized thoughts, paranoia Thought Content: Focused on her Dad Cognition: A/Ox3 (not cognizant of events/purpose) Insight: Poor Judgment: Poor Interventions PRN's used: Jon Sandoval Therapeutic interventions: Limit setting, No tolerance rule on unit to keep other patients safe. Provided therapeutic communication and active listening, medication administration/monitoring/education, reality orientation, symptom identification and management, Q 15 min checks. Restraints/seclusion/emergency medication: None Justification of Continued Inpatient Treatment: Pt remains labile, agitated, paranoid and psychotic. Interruption of current crisis, therapeutic support and medication management needed to provide stabilization, and prevent decompensation decreasing risk to patient and other patients on unit.
[2018-10-22] MEDS: topiramate 25mg tablet PO SCH ×3 (07:55→17:51)
[2018-10-22] MEDS: pantoprazole 40mg Tablet.DR PO SCH ×2 (07:56→17:51)
[2018-10-22] MEDS: baclofen 10mg tablet PO SCH ×2 (07:56→21:05)
[2018-10-22] MEDS: pregabalin 75mg capsule PO SCH ×3 (07:56→21:04)
[2018-10-22] MEDS: hydrOXYzine 25 MG tablet PO SCH ×3 (07:57→21:05)
[2018-10-22] MEDS: benztropine 1mg tablet PO SCH ×2 (07:57→21:06)
[2018-10-22] MEDS: HYDROchlorothiazide 12.5mg capsule PO SCH (07:57)
[2018-10-22] MEDS: PALIPERIDONE 3 MG TAB.ER.24 PO SCH (07:58)
[2018-10-22] MEDS: potassium chloride 8mEq ER tablet PO SCH (07:58)
[2018-10-22] MEDS: furosemide 20MG tablet PO SCH (07:58)
[2018-10-22 08:00] VITALS: BP 132/80
[2018-10-22] MEDS: HYDROcodone/acetaminophen 10/325mg tab PO PRN ×3 (08:08→21:08)
[2018-10-22] MEDS: ibuprofen tablet 400 MG TABLET PO PRN ×2 (09:57→22:28)
[2018-10-22] MEDS: ziprasidone 20mg capsule PO PRN ×2 (11:17→18:11)
[2018-10-22] MEDS ORDERED: BRIVARACETAM PO ONE (16:20)
--- NOTE | 2018-10-22 17:50 | NUR ---
Nursing Progress Note: Legal hold: 5250 Exp 10/26 @ 1140 Client on involuntary status for being gravely disabled Report received from BELA Hurd with use of SBAR Why are they here: Pt admitted on a 5150 for Psychosis. Pt is engaged in a belief that her TV at her home was communicating with her and her couch was attempting to cause harm to her daughter. Pt also having difficulty sleeping due to fear that her life is in danger. Assessment What has happened this shift: Pt. was awake at start of shift. Pt. took medications and ate meals in community room. Pt. became increasingly agitated by mid morning, becoming focused on community health nurse, calling her names and threatening to beat her up. Pt. given PRN Geodon and Ativan with good effect. Pt. provokes peers with delusional thoughts, stating, "my is a famous rapper and you all want to have sex with him". Pt. continues to have ideas of reference regarding her people. e.g. when this RN gave her Geodon prn, pt. went on about a person named "don". Pt. assocaites numbers to her dad and children. Pt. napped in afternoon. ZACH for pt.'s insurance defense attorney Xena Chávez signed by pt. today, insurance defense attorney to call tomorrow to discuss pt.'s child custody issues, call group social worker to sit with pt. during phone call. Pt. needs assistance paying bills. S/I, H/I: Denies A/VH: Denies Sleep: 2.5 hours ADL's: Independent. Group attendance: Pt. did not attend groups today Were Meds taken: Yes Any med S/E: None observed, None reported Mental Status Exam Appearance: clean and neat. Eye contact: Direct Behavior: pt. is labile, pranoid, and intrusive. Pt. is redirectable. Speech: hyper verbal Mood: Labile, agitated and depressed becoming playful and making jokes. Affect: congruent with mood Thought process: Disorganized thoughts, paranoia, ideas of reference. Thought Content: Focused on her Dad and children Cognition: A/Ox3 (not cognizant of events/purpose) Insight: Poor Judgment: Poor Interventions PRN's used: [place], Motrin, Geodon, Ativan Therapeutic interventions: Limit setting, No tolerance rule on unit to keep other patients safe. Provided therapeutic communication and active listening, medication administration/monitoring/education, reality orientation, symptom identification and management, Q 15 min checks. Restraints/seclusion/emergency medication: None Justification of Continued Inpatient Treatment: Pt remains labile, agitated, paranoid and psychotic. Interruption of current crisis, therapeutic support and medication management needed to provide stabilization, and prevent decompensation decreasing risk to patient and other patients on unit.
[2018-10-22 20:08] VITALS: BP 128/68
--- NOTE | 2018-10-22 22:41 | NUR ---
Nursing Progress Note: Legal hold:5150 Client on involuntary status for GD. Report received from BELA Guzmán with use of SBAR Why are they here: 70 year old male with hx of schizophrenia presents to the ED on a 5150 mental health hold. 5150 was written by a clinician due to the patient being unable to care for himself. Due to the 5150 report that [facility] and attempted to go to his sisters house. It was proved that the patient is unable to proved food, intermediate, or clothing for himself and is having grandiose delusions that he is a "director institution going through time travel." Patient has no intentions for suicide or homicide. Per Natasha Urban's note, DEPARTMENT OF SOCIOLOGY CHAIR, the patient is conserved by the state and she is working and finding placement for him. Assessment What has happened this shift: Pt was up in the art and group room with head phones on. She became irritable asking if Im in the white supremacist wing because I like all races. Pt paranoid about her medictions stating there from [place]. She made referances about her dad is the reason she is here and he is lying about her to take her money. Pt is refusing PRN for sleep stating my Dad wants me two take them so he can beat me. Pt was prompted several times to take her HS meds and was compliant . S/I, H/I:denies A/VH:denies Sleep: sleeping at this time. ADL's:Independent. Pt. encouraged to shower Group attendance: Came to group room for snack Were meds taken: Yes Any med S/E None reported/none observed Mental Status Exam Appearance:Disheveled. Eye contact: good Behavior: Calm, cooperative, pacing. Speech:clear Mood: euthmyc Affect:Flat Thought process: Delayed Thought Content: Scattered Cognition: Oriented x3. pt. confused at how he was admitted. Insight:poor Judgment:poor Interventions PRN's used: none Therapeutic interventions: 1:1 therapeutic listening Restraints/seclusion/emergency medication: none Justification of Continued Inpatient Treatment:Pt is gravely disabled unable to verbalize a plan for food,clothing and intermediate. Interrupting current crisis.
[2018-10-23] MEDS ORDERED: zolpidem 5mg tablet PO ONE (01:20)
--- NOTE | 2018-10-23 01:38 | NUR ---
Pt. asleep for approximately 30 minutes at HS, awakened with paranoid delusion and unable to go back to sleep. Up wearing headphones and talking loudly in the hallway. Pt. refuses to take PRN Seroquel per report that it makes her "groggy," which contributes to her paranoid thinking. New order obtained for Ambien 10mg, pt. reports it has worked for her in the past, medication administered and will continue to monitor.
[2018-10-23 08:00] VITALS: BP 136/83
[2018-10-23] MEDS: topiramate 25mg tablet PO SCH ×3 (08:22→16:30)
[2018-10-23] MEDS: hydrOXYzine 25 MG tablet PO SCH ×3 (08:22→21:06)
[2018-10-23] MEDS: pregabalin 75mg capsule PO SCH ×3 (08:22→21:06)
[2018-10-23] MEDS: HYDROchlorothiazide 12.5mg capsule PO SCH (08:23)
[2018-10-23] MEDS: potassium chloride 8mEq ER tablet PO SCH (08:23)
[2018-10-23] MEDS: pantoprazole 40mg Tablet.DR PO SCH ×2 (08:23→16:30)
[2018-10-23] MEDS: PALIPERIDONE 3 MG TAB.ER.24 PO SCH (08:23)
[2018-10-23] MEDS: benztropine 1mg tablet PO SCH ×2 (08:24→21:07)
[2018-10-23] MEDS: baclofen 10mg tablet PO SCH ×2 (08:24→21:06)
[2018-10-23] MEDS: furosemide 20MG tablet PO SCH (08:24)
[2018-10-23] MEDS: HYDROcodone/acetaminophen 10/325mg tab PO PRN ×2 (08:55→16:12)
[2018-10-23] MEDS: LORazepam 1 MG tablet PO PRN (14:42)
--- NOTE | 2018-10-23 14:59 | NUR ---
Nursing Progress Note: Nabila Garcia Legal hold:5250 Expires 10/26/18 @ 1140 Client on involuntary status for GD. Report received from BELA Hurd with use of SBAR Why are they here: Pt admitted on a 5150 for Psychosis. Pt is engaged in a belief that her TV at her home was communicating with her and her couch was attempting to cause harm to her daughter. Pt also having difficulty sleeping due to fear that her life is in danger. Assessment What has happened this shift: Pt. Sleeping at shift change, requested PCT avoid waking patient as she has not slept well since admission. According to report client was awake until 0230 when she agreed to take ambien. She then slept until approximately 0830. Upon awakening, client is cooperative and appropriate. Ambulated to community room for breakfast, meds taken without difficulty. Remembered this technical proposal writer from previous week. During 1:1 assessment client talking about her dad finally going to [facility]. When inquiring why, client responded "because he illegally tried to put my children up for adoption". Client also spoke about having a third child."they told me I had an , but I know they just took the baby and put it up for adoption." Later, client approached me in observation room speaking about multiple topics none of which followed another. "The roof is where they wash the cruise liners." "my ex was on the roof over there with my saying I wanted him back, he needs to fall into the [place]." Client requested this technical proposal writer speak with her alone in her room regarding something very important. Client stated she gave her dad the password to her post office box, she wanted us to be aware that he may bring mail to her and that he could not open it because it is a federal offense. Continues to demonstrate paranoid delusions, manic behavior, and psychosis. Weekly weight obtained, client stated "I cant be gaining weight I have been walking all over; to [place], and [place]ul...... " During 15 safety check, client was startled, escalating her paranoia and delusions. Provided 1:1 active listening, therapeutic communication, offered Ativan which patient agreed to take. Continues to have paranoid delusions as described above. S/I, H/I: Denies A/VH: Denies Sleep: 6 hours ADL's: Independent. Group attendance: yes Were Meds taken: Yes Any med S/E: None observed, None reported Mental Status Exam Appearance: clean and neat. Eye contact: Direct Behavior: labile, paranoid, irritable. Pt. is redirectable. Speech: hyper verbal, jumping from topic to topic Mood: Labile, agitated and depressed becoming playful and making jokes. Affect: congruent with mood Thought process: Disorganized thoughts, paranoia, ideas of reference. Thought Content: Focused on her Dad and children Cognition: A/Ox3 (not cognizant of events/purpose) Insight: Poor Judgment: Poor Interventions PRN's used: [place], Ativan Therapeutic interventions: Limit setting, No tolerance rule on unit to keep other patients safe. Provided therapeutic communication and active listening, medication administration/monitoring/education, reality orientation, symptom identification and management, Q 15 min checks. Restraints/seclusion/emergency medication: None Justification of Continued Inpatient Treatment: Pt remains labile, agitated, paranoid and psychotic. Interruption of current crisis, therapeutic support and medication management needed to provide stabilization, and prevent decompensation decreasing risk to patient and other patients on unit.
[2018-10-23] MEDS ORDERED: paliperidone palmitate inj 234 MG/1.5 ML SYRINGE IM ONE (15:40)
[2018-10-23] MEDS ORDERED: quetiapine 100mg tablet PO PRN (15:45)
[2018-10-23] MEDS: ibuprofen tablet 400 MG TABLET PO PRN (18:12)
[2018-10-23 20:00] VITALS: BP 139/74
[2018-10-23] MEDS: zolpidem 5mg tablet PO SCH (21:06)
--- NOTE | 2018-10-24 00:06 | NUR ---
Nursing Progress Note: Legal hold: 5250 Expires 10/26/18 @ 1140 Client on involuntary status for GD. Report received from MICHAEL Rodriguez with use of SBAR Why are they here: Pt admitted on a 5150 for Psychosis. Pt is engaged in a belief that her TV at her home was communicating with her and her couch was attempting to cause harm to her daughter. Pt also having difficulty sleeping due to fear that her life is in danger. Assessment What has happened this shift: At shift change pt was in her room holding a piece of paper up to her window and looking out as if she were looking for someone. Pt asked if she could take a shower, PCT stated he would get it ready for her. Pt appeared agitated stating he had been denied a visit and "she didn't know why." Pt states her is a [facility] Deputy. "The bitches are trying to drive me crazy." This job specification writer reassured pt that there was no visitor and no one was denied. Pt continued and became teary-eyed stating it had been 14 days since she had seen her children and her "father is probably turning them against her." Pt appeared to be less agitated after her shower, attended HS snack in group room. 1:1 completed at bedside. Pt was cooperative and compliant. Pt gets in a tangent at times calling her self "fat" or "everyone always wants to feed the fat girl." This job specification writer asked why she speaks negatively about herself, pt quieted down, but did not respond. Pt was medication compliant. Took her Ambien with no adverse side effects noted. S/I, H/I: None reported or observed A/VH: None reported or observed Sleep: Currently sleeping with no distress noted ADL's: Independent. Group attendance: scene shifter, no group Were Meds taken: Medication compliant Any med S/E: None observed, None reported Mental Status Exam Appearance: Freshly showered, had hair pinned up, in purple dress Eye contact: Direct Behavior: labile, paranoid, irritable. Pt. is redirectable. Speech: Hyper verbal Mood: Labile, agitated and depressed becoming playful and making jokes. Affect: Constricted with some brightening Thought process: Disorganized thoughts, paranoia Thought Content: Focused on her father and children- pt "misses her children" Cognition: Intact Insight: Poor Judgment: Poor Interventions PRN's used: None Therapeutic interventions: Limit setting, No tolerance rule on unit to keep other patients safe. Provided therapeutic communication and active listening, medication administration/monitoring/education, reality orientation, symptom identification and management, Q 15 min checks. Restraints/seclusion/emergency medication: None Justification of Continued Inpatient Treatment: Pt remains labile, agitated, paranoid and psychotic. Interruption of current crisis, therapeutic support and medication management needed to provide stabilization, and prevent decompensation decreasing risk to patient and other patients on unit. Addendum: 10/24/18 at 0454 by Uyen Alcantara RN Pt woke up requesting her PRN Lori for back pain 12/27. Pt is making delusional statements that her is driving from [place] to come and see her. She states he will be there and points outside towards the parking lot. "That fat bitch is crossing the street" "I hate fat bitches." No one is outside in the parking lot. Addendum: 10/24/18 at 0547 by Uyen Alcantara RN Pt came to this job specification writer and reported she had vomited up Alpha. I was able to see 1/2 pill in the garbage. Called down to the pharmacy to see about getting another Alpha. Pt states that she was nauseous because on her pill bottle it indicated she was paranoid. While waiting for pt to take pill, pt said she wanted to look at the container her Alpha came in. On the bottle it indicated for severe paranoia. Pt began ranting about her father "having control of things."
[2018-10-24] MEDS: HYDROcodone/acetaminophen 10/325mg tab PO PRN ×3 (05:15→21:27)
[2018-10-24] MEDS: pregabalin 75mg capsule PO SCH ×3 (07:35→20:41)
[2018-10-24] MEDS: baclofen 10mg tablet PO SCH ×2 (07:35→20:41)
[2018-10-24] MEDS: benztropine 1mg tablet PO SCH ×2 (07:35→20:41)
[2018-10-24] MEDS: HYDROchlorothiazide 12.5mg capsule PO SCH (07:36)
[2018-10-24] MEDS: pantoprazole 40mg Tablet.DR PO SCH ×2 (07:36→18:08)
[2018-10-24] MEDS: topiramate 25mg tablet PO SCH ×3 (07:37→18:08)
[2018-10-24] MEDS: hydrOXYzine 25 MG tablet PO SCH ×3 (07:37→20:41)
[2018-10-24] MEDS: ibuprofen tablet 400 MG TABLET PO PRN (07:37)
[2018-10-24] MEDS: potassium chloride 8mEq ER tablet PO SCH (07:37)
[2018-10-24] MEDS: PALIPERIDONE 3 MG TAB.ER.24 PO SCH ×2 (07:37→08:00)
[2018-10-24 08:12] VITALS: BP 123/80
[2018-10-24] MEDS: furosemide 20MG tablet PO SCH (08:26)
[2018-10-24] MEDS ORDERED: ziprasidone IM 20mg inj **IM only ONE (14:41)
[2018-10-24] MEDS ORDERED: LORazepam 2 mg/ml vial ONE (14:41)
[2018-10-24] MEDS ORDERED: LORazepam 2 mg/ml vial IV ONE (14:41)
[2018-10-24] MEDS ORDERED: ziprasidone IM 20mg inj **IM only IM ONE (14:41)
[2018-10-24] MEDS: diphenhydrAMINE 25mg capsule PO PRN (15:55)
--- NOTE | 2018-10-24 17:05 | NUR ---
Nursing Progress Note: Legal hold: 5250 Exp 10/26 @ 1140 Client on involuntary status for being gravely disabled Report received from Manisha RN with use of SBAR Why are they here: Pt admitted on a 5150 for Psychosis. Pt is engaged in a belief that her TV at her home was communicating with her and her couch was attempting to cause harm to her daughter. Pt also having difficulty sleeping due to fear that her life is in danger. Assessment What has happened this shift: Received Pt awake in her room w/o ristress after change of shift. Pt hyperverbal with loose associations and using a lot of humor with play on words. Pt. took all AM medications except oral invega, even after much explanation, prompting and answering of questions.She ate meals in community room and attended AM group and was disruptive during both and had to be asked to leave the group. Pt continued to escalate and provoke other clients. Was offered oral prn for anxiety but refused and agreed to IM Geodon and Ativan. Pt calmed a bit, rested in her room and went to outside patio in afternoon. Pt ruminates on how her father has done many horrible things to her and has orchestrated her children being taken away. She wants info on her children, but will not sign releases of info to CPS and others in order to do so. Pt remains self absorbed with little regard for needs and feelings of others. Received Motrin prn this AM for back pain and used ice packs intermittently throughout day. S/I, H/I: Denies A/VH: Denies Sleep: 2.5 hours ADL's: Independent. Group attendance: Pt. did not attend groups today Were Meds taken: Yes Any med S/E: None observed, None reported Mental Status Exam Appearance: clean and neat. Eye contact: Direct Behavior: pt. is labile, pranoid, and intrusive. Pt. is redirectable. Speech: hyper verbal Mood: Labile, agitated and depressed becoming playful and making jokes. Affect: congruent with mood Thought process: Disorganized thoughts, paranoia, ideas of reference. Thought Content: Focused on her Dad and children Cognition: A/Ox3 (not cognizant of events/purpose) Insight: Poor Judgment: Poor Interventions PRN's used: Motrin, Geodon, Ativan Therapeutic interventions: Limit setting, No tolerance rule on unit to keep other patients safe. Provided therapeutic communication and active listening, medication administration/monitoring/education, reality orientation, symptom identification and management, Q 15 min checks. Restraints/seclusion/emergency medication: None Justification of Continued Inpatient Treatment: Pt remains labile, agitated, paranoid and psychotic. Interruption of current crisis, therapeutic support and medication management needed to provide stabilization, and prevent decompensation decreasing risk to patient and other patients on unit.
[2018-10-24 19:37] VITALS: BP 120/45
[2018-10-24] MEDS: zolpidem 5mg tablet PO SCH (20:40)
--- NOTE | 2018-10-24 21:49 | NUR ---
Pt states no BM this today, pt refused MOM. Pt states it is "white and everything white tastes like shit" Addendum: 10/24/18 at 2209 by Uyen Alcantara RN Amended: Links added.
--- NOTE | 2018-10-24 21:51 | NUR ---
Pt states the rash between her legs are healed. Pt states she healed it with her hands. Addendum: 10/24/18 at 2209 by Uyen Alcantara RN Amended: Links added.
--- NOTE | 2018-10-25 00:18 | NUR ---
Nursing Progress Note: Legal hold: 5250 Expires 10/26/18 @ 1140 Client on involuntary status for GD. Report received from MICHAEL Rodriguez with use of SBAR Why are they here: Pt admitted on a 5150 for Psychosis. Pt is engaged in a belief that her TV at her home was communicating with her and her couch was attempting to cause harm to her daughter. Pt also having difficulty sleeping due to fear that her life is in danger. Assessment What has happened this shift: At shift change pt was walking between group room and rec room talking to herself, pt appeared to be a little agitated looking at her furrowed brows and tone of voice. Pt later was observed talking on the phone, pt was talking to her Aunt Radha. Pt requested her a [place] for an 8/10 back pain. Pt's labile mood kept her agitated then laughing. Pt was fixated on her boyfriend "Jo", "all the bitches under 20 need to say away from him." Pt was medication compliant. Pt became intrusive when this procedure writer was another client. Pt. stood at her doorway asking for her [place] and she needed some water. Pt continues with remarks about how horrible her father was and is to her. Pt retired to bed around 2200. S/I, H/I: None reported or observed A/VH: None reported or observed Sleep: Currently sleeping. Pt has notable sleep apnea. ADL's: Independent Group attendance: top ironer, no group Were Meds taken: Medication compliant Any med S/E: None observed, None reported Mental Status Exam Appearance: Clean, wearing black yoga pants and a green shirt Eye contact: Direct Behavior: Labile, paranoid, irritable, intrusive. Pt. is redirectable. Speech: Hyper verbal Mood: Labile, agitated and depressed becoming playful and making jokes. Affect: Constricted with some brightening Thought process: Disorganized thoughts, paranoia Thought Content: Focused on "her boyfriend Jo." Pt states she sees him in the parking lot out her window Cognition: A/O x3 (not cognizant of events/purpose) Insight: Poor Judgment: Poor Interventions PRN's used: None Therapeutic interventions: Limit setting, No tolerance rule on unit to keep other patients safe. Provided therapeutic communication and active listening, medication administration/monitoring/education, reality orientation, symptom identification and management, Q 15 min checks. Restraints/seclusion/emergency medication: None Justification of Continued Inpatient Treatment: Pt remains labile, agitated, paranoid and psychotic. Interruption of current crisis, therapeutic support and medication management needed to provide stabilization, and prevent decompensation decreasing risk to patient and other patients on unit. Addendum: 10/25/18 at 0536 by Uyen Alcantara RN Pt woke up c/o of a sore throat.
[2018-10-25] MEDS: HYDROcodone/acetaminophen 10/325mg tab PO PRN ×3 (06:03→19:39)
[2018-10-25] MEDS: benztropine 1mg tablet PO SCH ×2 (07:19→21:53)
[2018-10-25] MEDS: HYDROchlorothiazide 12.5mg capsule PO SCH (07:19)
[2018-10-25] MEDS: PALIPERIDONE 3 MG TAB.ER.24 PO SCH (07:19)
[2018-10-25] MEDS: potassium chloride 8mEq ER tablet PO SCH (07:19)
[2018-10-25] MEDS: furosemide 20MG tablet PO SCH (07:19)
[2018-10-25] MEDS: baclofen 10mg tablet PO SCH ×2 (07:19→21:53)
[2018-10-25] MEDS: pantoprazole 40mg Tablet.DR PO SCH ×2 (07:19→17:16)
[2018-10-25] MEDS: hydrOXYzine 25 MG tablet PO SCH ×3 (07:19→21:53)
[2018-10-25] MEDS: topiramate 25mg tablet PO SCH ×3 (07:19→17:16)
[2018-10-25] MEDS: pregabalin 75mg capsule PO SCH ×3 (07:19→21:53)
[2018-10-25] MEDS: ibuprofen tablet 400 MG TABLET PO PRN ×2 (07:51→22:43)
[2018-10-25 08:38] VITALS: BP 134/78
--- NOTE | 2018-10-25 16:00 | NUR ---
Fall?: A patient calls for help stating "She needs help." Upon entering the group room, Nabila was sitting on the floor. Pt states "I was waiting for all the guys to get out of the room so I can get up. I didnt want all of your help, I wanted Shai to come see me." Pt helped herself up without any assistance. Pt denies any injuries nor does she allow this nurse to do any assessment of her. Pt insists she wanted her nurse to see her on the floor. Her nurse was on lunch. This is believed to be intentional for her nurses attention. This is not reported on occurance report or fall huddle.
--- NOTE | 2018-10-25 16:54 | NUR ---
Nursing Progress Note: Legal hold: 5250 Exp 10/26 @ 1140 Client on involuntary status for being gravely disabled Report received from ,Manisha CRAMER with use of SBAR Why are they here: Pt admitted on a 5150 for Psychosis. Pt is engaged in a belief that her TV at her home was communicating with her and her couch was attempting to cause harm to her daughter. Pt also having difficulty sleeping due to fear that her life is in danger. Assessment What has happened this shift: Received patient visible on the unit. Patient clothing choice is almost inappropriate as its just a big T-shirt. Patient continues to have a crude speech, quoting rap songs and such. Patient is less antagonizing of others directly and gets under their skin by seeing the rap songs or talking to herself about random things. Patient is less apt to become agitated and makes it seem like its a joke because she smiles. Patient needed frequent redirection to stop saying things that antagonizes other people and that if she does she is encouraged to go to her room which she complies with begrudgingly. Patient adamantly denies suicidal thoughts, but does make homicidal statements frequently throughout the day. Many times patients speech is disorganized and psychotic and makes no sense, the UFOs are coming, they plant chips in us like you do with cats. continue to enforce limits. Later in the shift, according to the patient, she was dancing and fell to her knees. Charge present and feels this was not a fall. When this nurse checked on the patient, she was on her bed without complaints of any pain and perseverating on her dad being a racist and seemed to blow off the "fall" S/I, H/I: Denies A/VH: Denies Sleep: no naps today ADL's: Independent. Group attendance: Pt. did not attend groups today Were Meds taken: Yes Any med S/E: None observed, None reported Mental Status Exam Appearance: clean . Eye contact: Direct Behavior: pt. is labile, paranoid, and intrusive. Pt. is redirectable. Speech: hyper verbal Mood: Labile, agitated and depressed becoming playful and making jokes. Affect: congruent with mood Thought process: Disorganized thoughts, paranoia, ideas of reference. Thought Content: Focused on her Dad and children Cognition: A/Ox3 (not cognizant of events/purpose) Insight: Poor Judgment: Poor Interventions PRN's used: alisa Webb Therapeutic interventions: Limit setting, No tolerance rule on unit to keep other patients safe. Provided therapeutic communication and active listening, medication administration/monitoring/education, reality orientation, symptom identification and management, Q 15 min checks. Restraints/seclusion/emergency medication: None Justification of Continued Inpatient Treatment: Pt remains labile, agitated, paranoid and psychotic. Interruption of current crisis, therapeutic support and medication management needed to provide stabilization, and prevent decompensation decreasing risk to patient and other patients on unit.
[2018-10-25] MEDS: LORazepam 1 MG tablet PO PRN (17:16)
[2018-10-25 19:00] VITALS: BP 114/57
[2018-10-25] MEDS: ziprasidone 20mg capsule PO PRN (19:16)
--- NOTE | 2018-10-25 20:05 | NUR ---
Approached by another pt stating "Nabila is having an allergic reaction to her medication. Went to pts room, pt c/o SOB I need liquid Benadryl. On assessment lungs clear on auscultation, HR 102, O2 99. Encouraged pt to deep breath - this was effect. Pt showed no signs of distress. Will continue to monitor. Pt had an earlier incident when PCT was attempting to take vital signs. Pt yells "I am allergic to women, dirty women" and begins to cough and gag. Redirected pt and PCT was able to proceed.
[2018-10-25] MEDS: zolpidem 5mg tablet PO SCH (21:53)
[2018-10-26] MEDS ORDERED: benzocaine/menthol oral lozeng 1 EACH BOX MM PRN (00:05)
--- NOTE | 2018-10-26 00:27 | NUR ---
SOCIAL WORK NOTE: Met with pt in her room w/ Dr. Kelley in an effort to get pt to sign [facility] gather [facility] regarding pt's children. Pt became agitated and asked to speak only to this junior underwriter. I agreed, but for only a limited amount of time. Pt asked me to explain the ZACH, I did including it's parameters. She then asked if she could ask a few questions about it - she asked if it had anything to do w/ the Kraig Andrade, if she was waving her rights to her children and they could be taken away, if she could be arrested, if she was waving her rights so she could be conserved or have all her money and things taken, if her e- could be released from [facility], and a few very nonsensical questions asked in between the more practical ones. She also wanted to know if we were being recorded. She agreed to sign if me moved into the art. Once in the art she wanted to change her last name on the form to her "" last name not the last name her father gave her. I explained again that she could not change anything on the form as it would nullify it, so she again refused to sign. Saying, "Sorry I can't do. It's not my name." To this writers knowledge the pt is not . [facility] and [facility] are unable to gain accurate information on the patient's children, from involved [facility]'s, without the [facility] ZACH signed by the pt. DARIO Cevallos
--- NOTE | 2018-10-26 02:48 | NUR ---
Nursing Progress Note: Legal hold: 5250 Expires 10/26/18 @ 1140 Client on involuntary status for GD. Report received from MICHAEL Rodriguez with use of SBAR Why are they here: Pt admitted on a 5150 for Psychosis. Pt is engaged in a belief that her TV at her home was communicating with her and her couch was attempting to cause harm to her daughter. Pt also having difficulty sleeping due to fear that her life is in danger. Assessment What has happened this shift: Pt was audible on the unit from the observation room. Pt was observed perseverating about a fall she had during the day (see note from CRN). Pt states "no body worried about me in the back of the bus." "I was helping people get back from [place]." Redirected pt. back to her room suggested she elevate her foot. Pt states if I do that "my knee will bend back because I am double-jointed." "I need a walker, cane, wheelchair, my knee is broken." This play writer later returned because pt was loud and cursing stating all the female PCT are "bitches and whores." Later came back into room pt was yelling at one PCT "I hate women, women are dirty" "Why are you touching my things with your dirty hands." This continued - pt took a Geodon PRN which was effective. Pt woke up stating she was having a reaction to her medication (see 2005 note). Pt was assessed and monitored - no acute distress noted. Pt took HS medication without incident. S/I, H/I: None reported or observed. Pt does make homicidal remarks regarding her dad, [employer] employees A/VH: None reported or observed Sleep: Currently sleeping. See sleep assessment notation ADL's: Independent Group attendance: retail shift manager, no group Were Meds taken: Medication compliant Any med S/E: None observed, None reported Mental Status Exam Appearance: Clean and neat Eye contact: Direct Behavior: Labile, paranoid, irritable, intrusive. Pt. is redirectable. Speech: Hyper verbal, accusatory Mood: Labile, agitated and depressed becoming playful and making jokes. Affect: Constricted with some brightening Thought process: Disorganized thoughts, paranoia Thought Content: Left knee pain Cognition: A/O x3 (not cognizant of events/purpose) Insight: Poor Judgment: Poor Interventions PRN's used: Jon Sargent Norco Therapeutic interventions: Limit setting, No tolerance rule on unit to keep other patients safe. Provided therapeutic communication and active listening, medication administration/monitoring/education, reality orientation, symptom identification and management, Q 15 min checks. Restraints/seclusion/emergency medication: None Justification of Continued Inpatient Treatment: Pt remains labile, agitated, paranoid and psychotic. Interruption of current crisis, therapeutic support and medication management needed to provide stabilization, and prevent decompensation decreasing risk to patient and other patients on unit. Addendum: 10/26/18 at 0259 by Uyen Alcantara RN Pt c/o sore throat and cough at beginning of shift - received order for throat lozenges.
[2018-10-26] MEDS: potassium chloride 8mEq ER tablet PO SCH (07:26)
[2018-10-26] MEDS: hydrOXYzine 25 MG tablet PO SCH ×3 (07:26→21:00)
[2018-10-26] MEDS: PALIPERIDONE 3 MG TAB.ER.24 PO SCH (07:26)
[2018-10-26] MEDS: pregabalin 75mg capsule PO SCH ×3 (07:27→21:33)
[2018-10-26] MEDS: topiramate 25mg tablet PO SCH ×3 (07:27→16:43)
[2018-10-26] MEDS: pantoprazole 40mg Tablet.DR PO SCH ×2 (07:27→16:43)
[2018-10-26] MEDS: HYDROchlorothiazide 12.5mg capsule PO SCH (07:27)
[2018-10-26] MEDS: HYDROcodone/acetaminophen 10/325mg tab PO PRN ×2 (07:30→16:33)
[2018-10-26] MEDS: furosemide 20MG tablet PO SCH (08:12)
[2018-10-26] MEDS: benztropine 1mg tablet PO SCH ×2 (08:12→20:00)
[2018-10-26] MEDS: baclofen 10mg tablet PO SCH ×2 (08:12→20:00)
[2018-10-26 08:15] VITALS: BP 126/73
[2018-10-26] MEDS: ibuprofen tablet 400 MG TABLET PO PRN ×2 (10:36→17:41)
[2018-10-26] MEDS: LORazepam 1 MG tablet PO PRN (10:42)
[2018-10-26] MEDS ORDERED: divalproex sodium 500mg tablet.DR PO ONE (11:45)
[2018-10-26] MEDS ORDERED: ziprasidone IM 20mg inj **IM only ONE (11:55)
[2018-10-26] MEDS ORDERED: LORazepam 2 mg/ml vial ONE (11:56)
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
[2018-10-26 19:55] VITALS: BP 121/77
[2018-10-26] MEDS: divalproex sodium 250mg tablet PO SCH (21:00)
[2018-10-26] MEDS: zolpidem 5mg tablet PO SCH (21:00)
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
[2018-10-27] MEDS: HYDROcodone/acetaminophen 10/325mg tab PO PRN ×3 (04:17→21:39)
[2018-10-27] MEDS: diphenhydrAMINE 25mg capsule PO PRN ×3 (04:33→21:36)
[2018-10-27] MEDS: PALIPERIDONE 3 MG TAB.ER.24 PO SCH (07:26)
[2018-10-27] MEDS: hydrOXYzine 25 MG tablet PO SCH ×3 (07:26→21:21)
[2018-10-27] MEDS: potassium chloride 8mEq ER tablet PO SCH (07:27)
[2018-10-27] MEDS: furosemide 20MG tablet PO SCH (07:27)
[2018-10-27] MEDS: pantoprazole 40mg Tablet.DR PO SCH ×2 (07:27→17:39)
[2018-10-27] MEDS: topiramate 25mg tablet PO SCH ×3 (07:28→17:39)
[2018-10-27] MEDS: baclofen 10mg tablet PO SCH ×2 (07:28→21:21)
[2018-10-27] MEDS: HYDROchlorothiazide 12.5mg capsule PO SCH (07:28)
[2018-10-27] MEDS: benztropine 1mg tablet PO SCH ×2 (07:28→21:20)
[2018-10-27] MEDS: pregabalin 75mg capsule PO SCH ×3 (07:29→21:21)
[2018-10-27] MEDS: divalproex sodium 250mg tablet PO SCH ×2 (08:00→20:00)
[2018-10-27 08:27] VITALS: BP 139/84
--- NOTE | 2018-10-27 14:19 | NUR ---
Reassessment: Pt continues with 75-100% PO intake on regular diet meeting nutrient needs. LBM 10/23, it has been four days since LBM. Per nursing note patient is refusing milk of magnesia. Will continue to follow. Recommend: 1. continue regular diet 2. weekly weights Addendum: 10/27/18 at [address] Amended: Links added.
[2018-10-27] MEDS: ibuprofen tablet 400 MG TABLET PO PRN ×2 (14:51→21:21)
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
[2018-10-27 20:47] VITALS: BP 134/74
[2018-10-27] MEDS: zolpidem 5mg tablet PO SCH (21:20)
[2018-10-28] MEDS: HYDROcodone/acetaminophen 10/325mg tab PO PRN ×3 (03:37→20:58)
--- NOTE | 2018-10-28 05:01 | NUR ---
Nursing Progress Note: Legal hold: 5270 Client on involuntary status for GD. Report received from MICHAEL Rodriguez with use of SBAR Why are they here: Pt admitted on a 5150 for Psychosis. Pt is engaged in a belief that her TV at her home was communicating with her and her couch was attempting to cause harm to her daughter. Pt also having difficulty sleeping due to fear that her life is in danger. Assessment What has happened this shift: At shift change pt is pleasant and conversing with peers and staff. She is hear laughing in the halls and making jokes. Pt REFUSED her HS Depakote and only would take 5 mg of the 10 mg prescribed dose of Ambien. She requested motrin and norco which was given. Pt persistently talks about wanting to leave the unit and told a staff member she was looking at the doors to try to figure out how to get out. Pt only slept 1.5 hours and consistently got up and wandered the halls, coming up to the nursing station talking or asking for various things. Pt did not have any yelling outbursts or curse at anyone in particular tonight. Pt is still very paranoid about her medications and believes they give her asthma attacks or that they are placebos. S/I, H/I: denies A/VH: pt talks to self in room but denies Sleep: 1.5 hours ADL's: Independent Group attendance: maintenance mechanic 2nd shift, no group Were Meds taken: REFUSED depakote and 5mg of ambien Any med S/E: None observed, None reported Mental Status Exam Appearance: Clean, changes outfit twice Eye contact: Direct Behavior: Labile, paranoid Speech: Hyper verbal Mood: Labile,accusatory at times Affect: paranoid, verbally aggressive Thought process: Disorganized thoughts, paranoia Thought Content: Focused on people hurting her children, medications Cognition: A/O x3 (not cognizant of events/purpose) Insight: Poor Judgment: Poor Interventions PRN's used: motrin, norco, banadryl Therapeutic interventions: Limit setting, No tolerance rule on unit to keep other patients safe. Provided therapeutic communication and active listening, medication administration/monitoring/education, reality orientation, symptom identification and management, Q 15 min checks. Restraints/seclusion/emergency medication: None Justification of Continued Inpatient Treatment: Pt remains labile, agitated, paranoid and psychotic. Interruption of current crisis, therapeutic support and medication management needed to provide stabilization, and prevent decompensation decreasing risk to patient and other patients on unit.
[2018-10-28] MEDS: pregabalin 75mg capsule PO SCH ×3 (07:38→20:58)
[2018-10-28] MEDS: topiramate 25mg tablet PO SCH ×3 (07:38→18:09)
[2018-10-28] MEDS: baclofen 10mg tablet PO SCH ×2 (07:38→20:58)
[2018-10-28] MEDS: HYDROchlorothiazide 12.5mg capsule PO SCH (07:38)
[2018-10-28] MEDS: potassium chloride 8mEq ER tablet PO SCH (07:39)
[2018-10-28] MEDS: furosemide 20MG tablet PO SCH (07:39)
[2018-10-28] MEDS: divalproex sodium 250mg tablet PO SCH ×2 (07:40→21:09)
[2018-10-28] MEDS: benztropine 1mg tablet PO SCH ×2 (07:41→21:00)
[2018-10-28] MEDS: pantoprazole 40mg Tablet.DR PO SCH ×2 (07:43→18:09)
[2018-10-28] MEDS: hydrOXYzine 25 MG tablet PO SCH ×3 (07:43→20:59)
[2018-10-28] MEDS: PALIPERIDONE 3 MG TAB.ER.24 PO SCH (07:43)
[2018-10-28 08:00] VITALS: BP 132/82
[2018-10-28] MEDS: ibuprofen tablet 400 MG TABLET PO PRN (15:42)
--- NOTE | 2018-10-28 17:31 | NUR ---
Nursing Progress Note: Legal hold: 5270 Client on involuntary status for GD. Report received from MICHAEL Gooden with use of SBAR Why are they here: Pt admitted on a 5150 for Psychosis. Pt is engaged in a belief that her TV at her home was communicating with her and her couch was attempting to cause harm to her daughter. Pt also having difficulty sleeping due to fear that her life is in danger. Assessment What has happened this shift: Patient visible on the unit today. Patient was pleasant and cooperative through most of the day. Patient mood was light and she jumped around a lot with others. Patient did take all of her morning medications. After lunch patient did become a little more irritable and did sick in the day room for a while spewing a lot of psychotic negative nonsense about her family, The nurses and a lot of racist things that she feels people are doing to her. Patient makes jokes with her words and then allows her joke to become a reality for her and she gets agitated. Continued reassurance and compassionate limit setting. Encouraged pt to elevate her feet due to more than normal swelling bilateral ankles. S/I, H/I: denies A/VH: None reported or observed Sleep: 3.25 hours ADL's: Independent Group attendance: Pt. attended morning group Were Meds taken: Took all meds except Depakote Any med S/E: None observed, None reported Mental Status Exam Appearance: Pt. is overwheight, clean, with pt.'s own clothes. Eye contact: Direct Behavior: Labile, paranoid, irritable Speech: Hyper verbal Mood: Labile,accusatory Affect: paranoid, verbally aggressive Thought process: Disorganized thoughts, paranoia Thought Content: Focused on people hurting her children, father keeping her in hospital. Cognition: A/O x3 (not cognizant of events/purpose) Insight: Poor Judgment: Poor Interventions PRN's used: [place], Motrin, Bendaryl. Therapeutic interventions: Limit setting, No tolerance rule on unit to keep other patients safe. Provided therapeutic communication and active listening, medication administration/monitoring/education, reality orientation, symptom identification and management, Q 15 min checks. Restraints/seclusion/emergency medication: None Justification of Continued Inpatient Treatment: Pt remains labile, agitated, paranoid and psychotic. Interruption of current crisis, therapeutic support and medication management needed to provide stabilization, and prevent decompensation decreasing risk to patient and other patients on unit.
[2018-10-28 20:00] VITALS: BP 124/75
[2018-10-28] MEDS: zolpidem 5mg tablet PO SCH (20:58)
--- NOTE | 2018-10-29 05:26 | NUR ---
Nursing Progress Note: Legal hold: 5270 Client on involuntary status for GD. Report received from MICHAEL Rodriguez with use of SBAR Why are they here: Pt admitted on a 5150 for Psychosis. Pt is engaged in a belief that her TV at her home was communicating with her and her couch was attempting to cause harm to her daughter. Pt also having difficulty sleeping due to fear that her life is in danger. Assessment What has happened this shift: At shift change patient is in the art socializing. Pt is pleasant on approach and talks to staff and peers. Pt takes ALL HS medications including Depakote. pt's feet have +2 non pitting edema in bilateral feet. Pt is educated on elevating feet, pt verbalizes understanding . Pt jokes around and smiles a little more tonight and does not get into any confrontations. S/I, H/I: denies A/VH: denies Sleep: 6.75 hours ADL's: Independent Group attendance: cash manager, no group Were Meds taken: yes Any med S/E: None observed, None reported Mental Status Exam Appearance: Clean Eye contact: Direct Behavior: social, talkative Speech: Hyper verbal Mood: upbeat Affect: brightening Thought process: Disorganized thought at times Thought Content: WNL Cognition: A/O x3 (not cognizant of events/purpose) Insight: Poor Judgment: Poor Interventions PRN's used: [place] Therapeutic interventions: Limit setting, No tolerance rule on unit to keep other patients safe. Provided therapeutic communication and active listening, medication administration/monitoring/education, reality orientation, symptom identification and management, Q 15 min checks. Restraints/seclusion/emergency medication: None Justification of Continued Inpatient Treatment: Pt remains labile, agitated, paranoid and psychotic. Interruption of current crisis, therapeutic support and medication management needed to provide stabilization, and prevent decompensation decreasing risk to patient and other patients on unit.
[2018-10-29] MEDS: HYDROcodone/acetaminophen 10/325mg tab PO PRN ×3 (06:49→20:33)
[2018-10-29] MEDS: pantoprazole 40mg Tablet.DR PO SCH ×2 (07:29→17:36)
[2018-10-29] MEDS: PALIPERIDONE 3 MG TAB.ER.24 PO SCH (07:29)
[2018-10-29] MEDS: potassium chloride 8mEq ER tablet PO SCH (07:29)
[2018-10-29] MEDS: pregabalin 75mg capsule PO SCH ×3 (07:29→20:31)
[2018-10-29] MEDS: hydrOXYzine 25 MG tablet PO SCH ×3 (07:29→20:30)
[2018-10-29] MEDS: baclofen 10mg tablet PO SCH ×2 (07:30→20:31)
[2018-10-29] MEDS: topiramate 25mg tablet PO SCH ×3 (07:31→17:36)
[2018-10-29] MEDS: HYDROchlorothiazide 12.5mg capsule PO SCH (07:32)
[2018-10-29] MEDS: furosemide 20MG tablet PO SCH (07:32)
[2018-10-29] MEDS: benztropine 1mg tablet PO SCH ×2 (07:33→20:31)
[2018-10-29] MEDS: divalproex sodium 250mg tablet PO SCH ×2 (07:33→20:29)
[2018-10-29 08:00] VITALS: BP 117/76
[2018-10-29] MEDS: LORazepam 1 MG tablet PO PRN (08:17)
[2018-10-29] MEDS: ibuprofen tablet 400 MG TABLET PO PRN (08:17)
--- NOTE | 2018-10-29 17:00 | NUR ---
Nursing Progress Note: Legal hold: court competency 1370 Client on involuntary status for GD Report received from MICHAEL Hurd with use of SBAR Why are they here: Pt has been arrested multiple times for trespassing and this time has been in [facility] since February 2018. Pt unmedicated and very psychotic with poor hygiene. Pt is not competent to stand trial and so was placed here for stabilization of his psychiatric symptoms. Was in solitary confinement for 6 months in [facility]. Assessment What has happened this shift: Pt. awake at beginning of shift and requested Tabernash right away. Pt. took all meds and went to breakfast. Pt. requested ativan for increased anxiety and was given 2mg po. Pt. left goup c/o feeling too tired. Pt. became agitated when she heard people laughing down the hallway and started to berate them saying, "their a bunch of hoes". RN informed pt. that the laughing was not about her but pt. refused to accept it. Pt. continues to be delusional with looose associations, stating, "I saw some hoes on the roof, 3 of them, and they were having sex". "teacher stabbing me in the back" . "on the other side of the world you're a different race, because I before many times." "I know where you get these drugs from, bertram, he's a big rafi". RN met with pt. and pt.'s medical social consultant, RN heard pt. say that Executive Vice President Business Development may talk with her father and pt. stated, "I trust my father with my car and my money". SI/HI: Denies A/VH: Denies Sleep: 6.75 ADL's: Independent Group attendance: N Were meds taken: Y Any med S/E: none at this time reported or observed Mental Status Exam Appearance: Pt. wearing her own cltohes Eye contact: Direct Behavior: Labile, abrassive, agitated, Speech: Hyperverbal Mood: Labile, depressed, elated Affect: Appropriate Thought process: Disorganized. Loose associations. Tangential Thought Content: Focused on getting her kids, perseverates on people talking about her. Cognition: Poor attention and concentration. Insight: Poor Judgment: Poor Interventions PRN's used: Tabernash, ativan, Therapeutic interventions: 1:1 assessment, reoriented patient as needed, ADL encouragement, Q15 checks Restraints/seclusion/emergency medication: None Justification of Continued Inpatient Treatment: Pt is gravely disabled unable to verbalize a plan for food, clothing and longterm. Interrupting current crisis. on a court competency 1370 hold.
--- NOTE | 2018-10-29 19:05 | NUR ---
COLLATERAL SOCIAL WORK NOTE: Pt also LM on Saturday wanting to know where this junior copywriter was and why she hadn't seen me. She continued to leave a very lengthy message; part wanting to know what I had found out about her children (that I could not as she refused to sign ZACH), part wanting to be transferred to [facility]. Some of her reasoning was sound and some based in delusion. Pt was waiting at the door when this junior copywriter enter the unit for Flash meeting and wanted to know what I had found out about her children. I reminder her I was unable to find out anything as she would not sign the ZACH. Pt insisted she signed it last Saturday and yelled and stomped down the hallway. Another therapist tried to encourage pt 3Xs to sign ZACH and she refused each time w/different reasons why she couldn't or wouldn't. Pt's father, Raphael Garcia, LM on Saturday that he would like to come up Saturday to get pt's checkbook and MARLEY card to pay bills and wanted to know if this junior copywriter thought it was a good idea. I was unable to phone pt's father back as pt had verbally told me I was not allowed to speak to her father on my last shift because he was trying to kill her, steal her money, sell her children and he was why she was here. Spoke w/ pt w/ her RN-Ramirez and explained her dad phoned and wanted to know if he could come and get her check book and MARLEY card so he could pay her bills and she said that would be fine, she completely trusts him with her money and everything. They both are the ones in the family that have had to work for everything they have. I asked if it was okay with her for me to call and speak with him on the phone and she said she was okay with me calling him and whatever he wanted to do. Phoned Mr. Garcia back 2Xs, he returned my call and asked if I could mail to him as [address] for 1 hr visit, said could extend visit but would have to ask pt and director. would CB tomorrow. He also informed me that mera Hu had called to tell him there would be court in [place] on November 10 @ 11am. He will call w/ her number tomorrow. Returned Marixa's call from [facility], requesting a clinical update, legal statists and if pt had signed ZACH. Gave her the requested information. Also asked if possible for pt to move to [facility], as her doctor, DR. Kelley, and pt had asked about and it would be more conducive to allow her children to visit if that were to be an option. She said it is unusual when pt is medi medi but not impossible and gave me a list of needed docs. I said I would check w/current DrShelby and if her to was in agreement I would fax docs. Spoke w. William Schaffer NP and he agreed . Will gather Documents and fax tomorrow. There was a message left by pt's estate planning attorney, Xena Zaidi, regarding court on November 06. Phoned estate planning attorney and LM. LMs back and forth a couple of times but did not make contact. Informed pt that we were trying to make contact. Pt had a difficult time understanding we did not actually spoken yet. Tanja Franks, [facility]
[2018-10-29 20:00] VITALS: BP 142/70
[2018-10-29] MEDS: zolpidem 5mg tablet PO SCH ×2 (20:31→22:00)
--- NOTE | 2018-10-30 03:52 | NUR ---
Nursing Progress Note: Legal hold: 5270 Client on involuntary status for GD. Report received from BELA Guzmán with use of SBAR Why are they here: Pt admitted on a 5150 for Psychosis. Pt is engaged in a belief that her TV at her home was communicating with her and her couch was attempting to cause harm to her daughter. Pt also having difficulty sleeping due to fear that her life is in danger. Assessment What has happened this shift: Patient is in her room at the change of shift. She is compliant ofr a 1:1 assessment at her bedside. She denies SI/HI, AH/VH at thsi time. She states that her "Jo" put "3 hoes on the roof for me, because money talks." Throughout the shift she makes several delusional statements "Come smell this box, it smells like it's burning, you don't know nothing because you're a stupid ass girl (referring to this leader writer." Then states "I want Alvarez to come check it out, my Dad works for [employer] and can control these things, he keeps trying to kill me to take my kids." She goes on to state "They want to play Incujectoria shit, I can to." "An eye for and eye." She made several more delusional statements this shift my Dad spied my phone, my address has been given out so people can kill me, etc. She is compliant for evening medications. She does request helping putting on socks this evening which this leader writer does. She is noted to not interact much with others this shift and when she does is appropriate when interacting with other patients this evening. S/I, H/I: Denies A/VH: Denies Sleep: See sleep assessment ADL's: Independent Group attendance: assistant shift supervisor, no group Were Meds taken: yes Any med S/E: None observed, None reported Mental Status Exam Appearance: Clean Eye contact: Direct Behavior: Paces hallway, talks at nurses station Speech: Hyper verbal Mood: Paranoid Affect: Congruent to mood, looks worried Thought process: Disorganized Thought Content: Paranoid delusions Cognition: A/O x3 (not cognizant of events/purpose) Insight: Poor Judgment: Poor Interventions PRN's used: [place] Therapeutic interventions: Limit setting, No tolerance rule on unit to keep other patients safe. Provided therapeutic communication and active listening, medication administration/monitoring/education, reality orientation, symptom identification and management, Q 15 min checks. Restraints/seclusion/emergency medication: None Justification of Continued Inpatient Treatment: Pt remains labile, agitated, paranoid and psychotic. Interruption of current crisis, therapeutic support and medication management needed to provide stabilization, and prevent decompensation decreasing risk to patient and other patients on unit.
[2018-10-30] MEDS: HYDROcodone/acetaminophen 10/325mg tab PO PRN ×3 (05:24→20:45)
[2018-10-30] MEDS: furosemide 20MG tablet PO SCH (07:33)
[2018-10-30] MEDS: pregabalin 75mg capsule PO SCH ×3 (07:33→20:43)
[2018-10-30] MEDS: HYDROchlorothiazide 12.5mg capsule PO SCH (07:34)
[2018-10-30] MEDS: divalproex sodium 250mg tablet PO SCH ×2 (07:35→20:42)
[2018-10-30] MEDS: baclofen 10mg tablet PO SCH ×2 (07:35→20:43)
[2018-10-30] MEDS: potassium chloride 8mEq ER tablet PO SCH (07:35)
[2018-10-30] MEDS: topiramate 25mg tablet PO SCH ×3 (07:37→17:34)
[2018-10-30] MEDS: PALIPERIDONE 3 MG TAB.ER.24 PO SCH (07:38)
[2018-10-30] MEDS: benztropine 1mg tablet PO SCH ×2 (07:38→20:43)
[2018-10-30] MEDS: pantoprazole 40mg Tablet.DR PO SCH ×2 (07:39→17:34)
[2018-10-30] MEDS: hydrOXYzine 25 MG tablet PO SCH ×3 (07:39→20:41)
[2018-10-30 08:00] VITALS: BP 144/92
[2018-10-30] MEDS: ibuprofen tablet 400 MG TABLET PO PRN ×2 (09:28→17:34)
--- NOTE | 2018-10-30 13:03 | NUR ---
DISCHARGE PLANNING: Faxed packet of documentation requested by [facility] to consider transferring patient to [facility]. JERILYN CevallosW
--- NOTE | 2018-10-30 17:03 | NUR ---
Nursing Progress Note: Legal hold: 5270 Client on involuntary status for GD. Report received from MICHAEL Hurd with use of SBAR Why are they here: Pt admitted on a 5150 for Psychosis. Pt is engaged in a belief that her TV at her home was communicating with her and her couch was attempting to cause harm to her daughter. Pt also having difficulty sleeping due to fear that her life is in danger. Assessment Patient visible on the unit all day in an out of the hallway, in the day room, the rec room and her bedroom. Patient continues to be hyper verbal with pressured speech at times working herself up to agitation at times. Patient states theyre using mine and my husbands name to gain profits. She was also paranoid related to her father and she plays word games that allows herself to get upset. Patient stated last night my father said he was having spaghetti and meatballs and then he said, oh shit I spilled my sauce. She allows this statement that her father made to get herself worked up thinking that her father was treating her daughter not well. Patient reassured and use distraction techniques to shift patients mode from delusional negative material. This technique was mildly successful today. What has happened this shift: S/I, H/I: denies A/VH: denies Sleep: 6.5 hours no nap today ADL's: Independent Group attendance: no Were Meds taken: yes Any med S/E: None observed, None reported Mental Status Exam Appearance: Clean Eye contact: Direct Behavior: social, talkative Speech: Hyper verbal Mood: upbeat Affect: brightening Thought process: Disorganized thought at times Thought Content: WNL Cognition: A/O x3 (not cognizant of events/purpose) Insight: Poor Judgment: Poor Interventions PRN's used: [place] Therapeutic interventions: Limit setting, No tolerance rule on unit to keep other patients safe. Provided therapeutic communication and active listening, medication administration/monitoring/education, reality orientation, symptom identification and management, Q 15 min checks. Restraints/seclusion/emergency medication: None Justification of Continued Inpatient Treatment: Pt remains labile, agitated, paranoid and psychotic. Interruption of current crisis, therapeutic support and medication management needed to provide stabilization, and prevent decompensation decreasing risk to patient and other patients on unit.
[2018-10-30] MEDS ORDERED: padimate O/petrolatum,white stick (Chapstick) TP PRN (19:10)
[2018-10-30 20:30] VITALS: BP 136/74
[2018-10-30] MEDS: zolpidem 5mg tablet PO SCH (21:57)
--- NOTE | 2018-10-31 02:08 | NUR ---
Nursing Progress Note: Legal hold: 5270 Client on involuntary status for GD. Report received from BELA Galicia with use of SBAR Why are they here: Pt admitted on a 5150 for Psychosis. Pt is engaged in a belief that her TV at her home was communicating with her and her couch was attempting to cause harm to her daughter. Pt also having difficulty sleeping due to fear that her life is in danger. Assessment What has happened this shift: Patient is around the whole unit this evening. In her room, walking around and the group room. She is noted to interact apporpriate with others this shift and does not antagonize others. She still expresses delusional thinking. Speaking about letters on the roof being a sign from "Jo" or the latter on the ground by the building next door might mean her children are locked inside. She states "I swear I'm allergic to females, I should of been born a man so I could just beat them all." Then she laughs and states "I know, that's bad." She is more pleasant this evening and is easily able to be distracted when she begins talking about her delusions or goes off on a tangent. She is cooperative with her evening medications and takes them without event. S/I, H/I: Denies A/VH: Denies Sleep: See sleep assessment ADL's: Independent Group attendance: x ray service engineer, no group Were Meds taken: yes Any med S/E: None observed, None reported Mental Status Exam Appearance: Clean Eye contact: Direct Behavior: Paces hallway, talks at nurses station Speech: Hyperverbal Mood: Paranoid Affect: Congruent to mood Thought process: Disorganized Thought Content: Paranoid delusions Cognition: A/O x3 (not cognizant of events/purpose) Insight: Poor Judgment: Poor Interventions PRN's used: Gratis, Motrin Therapeutic interventions: Limit setting, No tolerance rule on unit to keep other patients safe. Provided therapeutic communication and active listening, medication administration/monitoring/education, reality orientation, symptom identification and management, Q 15 min checks. Restraints/seclusion/emergency medication: None Justification of Continued Inpatient Treatment: Pt remains labile, agitated, paranoid and psychotic. Interruption of current crisis, therapeutic support and medication management needed to provide stabilization, and prevent decompensation decreasing risk to patient and other patients on unit.
[2018-10-31] MEDS: ibuprofen tablet 400 MG TABLET PO PRN ×2 (02:19→09:55)
[2018-10-31] MEDS: HYDROcodone/acetaminophen 10/325mg tab PO PRN ×2 (05:15→13:16)
[2018-10-31 07:30] VITALS: BP 130/85
[2018-10-31] MEDS: PALIPERIDONE 3 MG TAB.ER.24 PO SCH (07:52)
[2018-10-31] MEDS: baclofen 10mg tablet PO SCH (07:52)
[2018-10-31] MEDS: pregabalin 75mg capsule PO SCH ×2 (07:52→13:15)
[2018-10-31] MEDS: HYDROchlorothiazide 12.5mg capsule PO SCH (07:52)
[2018-10-31] MEDS: topiramate 25mg tablet PO SCH ×3 (07:52→17:41)
[2018-10-31] MEDS: hydrOXYzine 25 MG tablet PO SCH ×2 (07:52→12:38)
[2018-10-31] MEDS: divalproex sodium 250mg tablet PO SCH (07:52)
[2018-10-31] MEDS: pantoprazole 40mg Tablet.DR PO SCH ×2 (07:52→17:41)
[2018-10-31] MEDS: benztropine 1mg tablet PO SCH (07:53)
[2018-10-31] MEDS: potassium chloride 8mEq ER tablet PO SCH (07:53)
[2018-10-31] MEDS: furosemide 20MG tablet PO SCH (07:53)
[2018-10-31] MEDS: acetaminophen 325mg tablet PO PRN (11:47)
--- NOTE | 2018-10-31 15:53 | NUR ---
Nursing Progress Note: Legal hold: 5270 Client on involuntary status for GD. Report received from MICHAEL Polanco with use of SBAR Why are they here: Pt admitted on a 5150 for Psychosis. Pt is engaged in a belief that her TV at her home was communicating with her and her couch was attempting to cause harm to her daughter. Pt also having difficulty sleeping due to fear that her life is in danger. Assessment What has happened this shift: Pt stated that she is not bipolar, her mother is bipolar not her and that she is probably being given her mom's medications but her mom gets the good Maurice and she doesn't. Pt adamant that she is depressed but not bipolar, denies SI/HI/AH/VH. Pt described her mood as "angry," angry because "I keep getting cock blocked from my kids and from my love." Pt is hyperverbal with loose associations/flight of ideas, talks to herself/anyone who will listen nonstop during breakfast and for most of the morning. Pt calls her [place]." Pt continues to be delusional and paranoid, believes staff is saying bad things about her, states that she was kidnapped from [place] to cover up the attack/rape by the SWAT team. Pt states she was given 3 strikes but she has only committed 2 misdemeanors in her entire life. Pt states that she doesn't like women, states "if you had my mom, you would hate women too." Pt states that her kids have been kidnapped by the Retail Salesperson's office twice. Pt described her frustration with her family and the grief her dad gets because his grand kids are , but he loves them anyway. Pt stated that her last name used to be spelled with a "C" but it was changed to a "K" for the [employer]KK. Pt described how racist much of her family is and expressed how she doesn't clinical technologist people by their race. Pt c/o frequent back pain, ice packs and prn pain medications provided. Pt swears at times but then apologizes, pt is easily redirectable. Katiana from the [facility] called for a nurse to nurse report, [facility] is arranging transport for pt today. S/I, H/I: Pt denies A/VH: Pt denies Sleep: Slept 6 hours per noc shift report ADL's: Independent Group attendance: Yes Were Meds taken: Yes Any med S/E: Pt stated that the Depakote was making her tired, reluctantly took it with encouragement. Mental Status Exam Appearance: Clean Eye contact: Good Behavior: somewhat intrusive, cooperative Speech: Hyperverbal, loose associations, flight of ideas Mood: Depressed, "angry" Affect: Congruent Thought process: racing thoughts, paranoid delusions, delusions of persecution Thought Content: Wants to see her kids, wants to go back to [place], believes male PCT targeting her, talking bad about her, doesn't like women, doesn't like racism, her back is "broken," concerned her dad is driving her car without car insurance, wants to pay her car insurance. Cognition: A/O X 3, disoriented to situation (reality distortion/delusions) Insight: Poor Judgment: Poor Interventions PRN's used: ibuprofen 400 mg @ 0955 for back pain, Tylenol 650 mg at 1130 for MADRID, Maurice 10/325 mg @ 1316 for back pain Therapeutic interventions: 1:1 assessment, active listening, therapeutic conversation, reality orientation, reassurance pt is safe, limit setting, redirection, medication administration/monitoring/education, Q 15 min safety checks. Restraints/seclusion/emergency medication: None Justification of Continued Inpatient Treatment: Pt remains delusional though is easier to distract/redirect, plan is for pt to be transferred to [facility] possibly today, [facility] is arranging transportation.
[2018-10-31] MEDS ORDERED: POTA8TAB3 PO (16:55)
[2018-10-31] MEDS ORDERED: MELO-100 PO (16:55)
[2018-10-31] MEDS ORDERED: ESOM40CA PO (16:55)
[2018-10-31] MEDS ORDERED: BENZ1TAB7 PO (16:55)
[2018-10-31] MEDS ORDERED: DIVA250T4 PO (16:55)
[2018-10-31] MEDS ORDERED: LYR75C PO (16:55)
[2018-10-31] MEDS ORDERED: QUET100T33 PO (16:55)
[2018-10-31] MEDS ORDERED: PALI3TAB5 PO (16:55)
[2018-10-31] MEDS ORDERED: BAC10T PO (16:55)
[2018-10-31] MEDS ORDERED: TOP25T PO (16:55)
[2018-10-31] MEDS ORDERED: HYDR-3686 PO (16:55)
--- NOTE | 2018-10-31 18:25 | NUR ---
DISCHARGE NOTE: Pt transferred to [facility], ambulated off the unit accompanied by PCT and security to meet [facility] septic pump truck driver out front at 1825. Original 5270 and pt's home meds sent with septic pump truck driver to give to staff at [facility], all belongings sent with pt.
== END 2018-10-31 18:25 | disposition still patient (30) | DRG 885 ==
LOC: ADULT MH 09:48
PROVIDERS: ADMIT Psychiatry & Neurology Psychiatry; ATTEND Physician Assistant
DX: F25.1 Schizoaffective disorder, depressive type (principal); Z68.44 Body mass index [BMI] 60.0-69.9, adult; F43.10 Post-traumatic stress disorder, unspecified; J45.909 Unspecified asthma, uncomplicated; K21.9 Gastro-esophageal reflux disease without esophagitis; G89.29 Other chronic pain; I10 Essential (primary) hypertension; F41.9 Anxiety disorder, unspecified; M54.5 Low back pain; E66.9 Obesity, unspecified; F60.3 Borderline personality disorder; G47.30 Sleep apnea, unspecified; M47.896 Other spondylosis, lumbar region; F15.90 Other stimulant use, unspecified, uncomplicated; Z98.891 History of uterine scar from previous surgery; Z88.8 Allergy status to other drugs, medicaments and biological substances; Z79.899 Other long term (current) drug therapy; Z87.891 Personal history of nicotine dependence
CPT/HCPCS: 36415; 80061; 82550; 83036; 87070; 99285; J1200; J1630; J2060; J3486; Q0163; Q0177